=== PATIENT | male | born 1985 | race Asian ===

== ENCOUNTER 2019-10-07 07:16 | Inpatient (IN) | payer BC ==
[2019-10-07] MEDS ORDERED: CEFTRIAXONE 2,000 MG in DEXTROSE 5%-WATER - 50 ML IVPB ONE (07:59)
[2019-10-07] MEDS ORDERED: VANCOMYCIN 1 GM in D5W (PRE-DOCKED) 1,000 MG/250 ML IVPB ONE (08:00)
[2019-10-07] MEDS ORDERED: ONDANSETRON 4 MG/2 ML VIAL IVPUSH ONE (08:00)
[2019-10-07] MEDS ORDERED: ACETAMINOPHEN 1000 MG/100 ML VIAL (NON FORMULARY) IVPB ONE (08:00)
[2019-10-07] MEDS ORDERED: LACTATED RINGERS SOLUTION 1000 ML INFUS.BAG IV ONE (08:01)
[2019-10-07] MEDS ORDERED: DEXAMETHASONE SOD PHOSPHATE 20 MG/5 ML VIAL IVPB ONE (08:03)
[2019-10-07] MEDS ORDERED: METOCLOPRAMIDE HCL INJECTION 10 MG/2 ML VIAL IVPB ONE ×2 (08:06→19:15)
[2019-10-07] MEDS ORDERED: DEXAMETHASONE SOD PHOSPHATE 4 MG/1 ML VIAL IVPUSH ONE (08:07)
[2019-10-07] MEDS ORDERED: CEFTRIAXONE 2 GM/100 ML BAG IVPB ONE ×2 (08:16→22:24)
[2019-10-07] MEDS ORDERED: DEXAMETHASONE SOD PHOSPHATE 10 MG/1 ML VIAL ONE (08:27)
[2019-10-07 08:50] LABS: BASO % 0.5 % (0-2.0); EOS % 1.3 % (0-4.5); HEMATOCRIT 40.8 % (35.4-49); HEMOGLOBIN 14.1 GM/dL (11.7-16.9); LYMPH % 10.5 % (8-40); MCH 30.3 pg (25.7-33.7); MCHC 34.5 g/dl (32.0-35.9); MEAN CELL VOLUME 87.9 fl (80-96); MEAN PLT VOLUME 8.5 fl (7.5-11.1); NEUT % 80.7 % (42.8-82.8); PLATELET COUNT 223 K/MM3 (134-434); RBC 4.64 M/mm3 (4.00-5.60); RDW 13.3 % (11.9-15.9); WHITE BLOOD COUNT 8.7 K/mm3 (4.0-10.0)
--- NOTE | 2019-10-07 08:50 | PDOC ---
Attending Attestation - Resident Resident Name: TrentonSophie - ED Attending Attestation I have performed the following: I have examined & evaluated the patient, The case was reviewed & discussed with the resident, I agree w/resident's findings & plan, Exceptions are as noted - HPI HPI: 10/07/19 08:48 34 years old with past medical history significant for migraines and previous history of viral meningitis presents to the emergency department with persistent constant headache and viral URI symptoms since Thursday. Normally his migraines resolve with Excedrin did not resolve he was tested for the flu which came back negative but treated empirically with Tamiflu His headache is moderate to severe persistent constant he states it is associated with neck stiffness subjective fevers but no fever here in the emergency department - Physicial Exam PE: 10/07/19 08:49 Vitals: Triage Vital signs reviewed General Appearance: No acute distress, well nourished well developed, Head: Atraumatic, Neck: Supple; no Nucal rigidity Chest Wall: Nontender Cardiac: Regular rate and rhythym, no murmurs, no rubs, no gallops, Lungs: Clear to auscultation bilateral, good air movement bilaterally, Abdomen: Soft, non distended, normal bowel sounds, non tender to palpation Extremities: Full range of motion to all extremities, no cyanosis, clubbing, or edema Skin: Warm and dry, no rashes or lesions, no rash, no petechiae Neuro: Strengthintact to all extremities, sensation intact to all extremities, gait normal Psych: Normal mood, normal affect - Medical Decision Making 10/07/19 08:49 History and examination consistent with migraine headache versus viral meningitis no fever neck is supple low suspicion for bacterial meningitis at this time however given symptomatology will empirically cover, CT labs observe reassess LP Persistent headache decision made to LP patient. See procedure note. Patient tolerated procedure well. Reevaluation LP results consistent with viral meningitis Given recurrence of viral meningitis picture patient started on acyclovir will admit to hospital for further management and neurology consultation will need work-up for possible inflammatory meningitis versus recurrent viral meningitis
[2019-10-07] MEDS ORDERED: METOCLOPRAMIDE HCL INJECTION 10 MG/2 ML VIAL ONE ×2 (08:55→17:24)
[2019-10-07] MEDS ORDERED: ACETAMINOPHEN INJECTION 100 ML IVPB ONE ×2 (08:55→17:24)
[2019-10-07] MEDS ORDERED: VANCOMYCIN 1 GRAM (PRE-DOCKED) 1,000 MG/250 ML BAG IVPB ONE (08:56)
--- NOTE | 2019-10-07 09:01 | PDOC ---
History of Present Illness - General Chief Complaint: Headache Stated Complaint: HEAD PAIN Time Seen by Provider: 10/07/19 07:28 - History of Present Illness Initial Comments: 10/07/19 08:57 34 yo M PMH viral meningitis 6 years ago, Lyme disease 10 years ago, unexplained pre-syncope/syncope with loop recorder in place for past 1 years, presenting with headache. Notes that headache began on Thursday, posterior radiating down back, 05/26 (02/23 with pain medication), associated with neck pain, nausea, generalized weakness, and chills. Exacerbated by neck flexion, sound, and light. Visited PCP on Thursday, who checked for flu (negative) and empirically started on Tamiflu and Zofran. Has tried Excedrin and Advil with only temporary relief. Had one episode of vomiting this AM despite Zofran. Social: occasional marijuana use, only has sex with women, 2-3 sexual partners Past History - Past Medical History Allergies/Adverse Reactions: Allergies Allergy/AdvReac Type Severity Reaction Status Date / Time No Known Allergies Allergy Verified 10/07/19 07:18 Home Medications: Ambulatory Orders Levothyroxine [Synthroid -] 50 mcg PO DAILY 04/19/14 Doxycycline Monohydrate [Monodox] 100 mg PO Q12H #20 capsule 04/22/14 Levothyroxine [Synthroid -] 50 mcg PO DAILY@0700 #10 tablet 04/22/14 Oxycodone HCl/Acetaminophen [Percocet 10-325 mg Tablet -] 1 - 2 tab PO Q6H #20 tablet 04/22/14 COPD: No Thyroid Disease: Yes (HYPO no meds) Other medical history: meningitis - Psycho Social/Smoking Cessation Hx Smoking History: Former smoker Have you smoked in the past 12 months: No Number of Cigarettes Smoked Daily: 1 Information on smoking cessation initiated: No Hx Alcohol Use: No Drug/Substance Use Hx: No Substance Use Type: Marijuana Hx Substance Use Treatment: No Review of Systems - Review of Systems Comments:: 10/07/19 09:05 GENERAL/CONSTITUTIONAL: endorses subjective fever/chills, generalized weakness, and malaise HEAD, EYES, EARS, NOSE AND THROAT: denies rhinorrhea, nasal congestion, throat pain, throat swelling, difficulty swallowing, mouth swelling, ear pain, eye pain , visual changes NEUROLOGIC: endorses headache, fine tremor in hands. Denies unsteady gait, seizure, mental status changes, bladder or bowel incontinence CARDIOVASCULAR: denies chest pain, syncope, palpitations, irregular heart rate, lightheadedness, peripheral edema RESPIRATORY: denies cough, shortness of breath, dyspnea with exertion, orthopnea , wheezing, stridor, hemoptysis GASTROINTESTINAL: endorses nausea and vomiting. Denies abdominal pain, abdominal distension, diarrhea, constipation, melena, hematochezia GENITOURINARY: denies dysuria, frequency, urgency, hesitancy, hematuria, flank pain, genital pain MUSCULOSKELETAL: denies myalgia, arthralgia, joint swelling, back pain, neck pain SKIN: denies rash, itching, pallor HEMATOLOGIC/IMMUNOLOGIC: denies easy bleeding, easy bruising, lymphadenopathy, frequent infections ENDOCRINE: denies unexplained weight gain, unexplained weight loss, heat intolerance, cold intolerance PSYCHIATRIC: denies anxiety, depression, suicidal or homicidal ideation, hallucinations *Physical Exam - Vital Signs Last Vital Signs Temp Pulse Resp BP Pulse Ox 98.1 F 89 18 143/87 98 10/07/19 07:20 10/07/19 07:20 10/07/19 07:20 10/07/19 07:20 10/07/19 07:20 - Physical Exam 10/07/19 09:07 Gen: well-developed, well-nourished, appears uncomfortable Neuro: AAOX4, CN II-XII intact, FTN intact, EOMI, PERRLA, 5/5 strength, SILT HEENT: atraumatic, normocephalic, dry mucous membranes Neck: trachea midline, supple, pain with neck flexion but negative Brudzinski sign CV: regular rate, regular rhythm, no murmurs, rubs, or gallops Pulm: CTA b/l, no wheezing Abd: soft, non-distended, non-tender MSK: full ROM, intact pulses, negative Kernig's sign Extr: no edema, no deformities Skin: warm, dry ED Treatment Course - LABORATORY CBC & Chemistry Diagram: 10/07/19 08:30 10/07/19 08:30 - Medications Given in the ED: ED Medications Discontinued Medications Generic Name Dose Route Start Last Admin Trade Name Freq PRN Reason Stop Dose Admin Dexamethasone Sodium Phosphate 4 mg 10/07/19 08:07 10/07/19 08:40 Decadron Injection - IVPUSH 10/07/19 08:08 4 mg ONCE ONE Administration Ceftriaxone Sodium 2,000 mg/ 50 mls @ 100 mls/hr 10/07/19 07:59 10/07/19 08: 39 Dextrose IVPB 10/07/19 08:28 100 mls/hr ONCE ONE Administration Medical Decision Making - Medical Decision Making 10/07/19 08:23 C/f viral meningitis vs migraine vs ICH. - ceftriaxone 2g - vanc 1g - Ofirmev, Reglan, Benadryl, fluids - Decadron - CBC, CMP - coags - CT head non con - potential lumbar puncture 10/07/19 09:12 CBC unremarkable 10/07/19 09:35 CMP and coags unremarkable 10/07/19 12:34 CSF with WBC 200, protein 216, lymphocytes 79%. Will admit for r/o bacterial meningitis, potential further work up of inflammatory etiologies. 10/07/19 13:[address] Cobb, who recommends sending viral studies (EBV, HSV ) and contacting ID for potential further CSF studies. Concerned about potential Mollaret's meningitis. 10/07/19 13:[address] Lagunas, who agrees to empirically treat with acyclovir. Further recommends encephalitis CSF studies. Discharge - Discharge Information Problems reviewed: Yes Clinical Impression/Diagnosis: Viral meningitis - Follow up/Referral Referrals: Dane Collins MD [Primary Care Provider] - - Patient Discharge Instructions - Post Discharge Activity
[2019-10-07 09:14] LABS: BILIRUBIN,TOTAL 0.6 mg/dL (0.2-1); BLOOD UREA NITROGEN 16.5 mg/dL (7-18); CALCIUM 9.9 mg/dL (8.5-10.1); CREATININE 1.1 mg/dL (0.55-1.3); INR 0.92 (0.83-1.09); PROTHROMBIN TIME (PATIENT) 10.8 SEC (9.7-13.0); TOT PROT 7.8 g/dl (6.4-8.2)
[2019-10-07 09:17] LABS: ACTIVATED PTT 34.9 SECONDS (25.2-36.5)
[2019-10-07] MEDS ORDERED: MIDAZOLAM HCL 2 MG/2 ML SINGLE DOSE VIAL IVPUSH ONE (09:54)
[2019-10-07] MEDS ORDERED: LIDOCAINE HCL 1%, 10 MG/ML (50 mL VIAL) INF ONE (09:54)
[2019-10-07] MEDS ORDERED: LIDOCAINE HCL 1%, 10 MG/ML (20ML VIAL) ONE (09:59)
[2019-10-07] MEDS ORDERED: MIDAZOLAM HCL 2 MG/2 ML SINGLE DOSE VIAL ONE (10:00)
[2019-10-07 11:13] LABS: BF GLUCOSE (CSF ONLY) 47 mg/dL (40-70)
[2019-10-07 11:33] LABS: CSF APPEARANCE CLEAR; CSF COLOR COLORLESS
[2019-10-07 11:52] LABS: CSF WBC 200
[2019-10-07] MEDS ORDERED: ACYCLOVIR 500 MG (50MG/ML) VIAL IVPUSH ONE (13:32)
[2019-10-07] MEDS ORDERED: ACYCLOVIR INJECTION 800 MG in DEXTROSE 5%-WATER - 250 ML IVPB ONE (15:00)
[2019-10-07] MEDS ORDERED: SODIUM CHLORIDE 1,000 ML IV SCH (16:00)
--- NOTE | 2019-10-07 16:08 | PN ---
Teaching Attending Note Name of Resident: Gustavo Duran ATTENDING PHYSICIAN STATEMENT I saw and evaluated the patient. I reviewed the resident's note and discussed the case with the resident. I agree with the resident's findings and plan as documented. Presents with symptoms that were consistent with the Seen by Dr. Butt last time he was here; suspected pain seeking behavior at the previous 2013 admission for same issue. Patient with LP consitent with prior dx of meningitis. IV abx and anti-virals per ID. Discussed with Dr. Cobb 10 sys ROS done and negative aside from HPI +Kernig's, equivical B's NAD AAO Resting in bed HR wnl, no fnd Normal mood, appropriate behavior Lungs CTAB, w/ sym exp NT ND +BS Micro pending Imaging reviewed ASSESSMENT AND PLAN: Patient with history of meningitis and pain seeking behavior presents with headache and lab findings consistent with prior diagnosis. Would avoid opioids and maximize amount of non-narcotic analgesics. Defer overall tx to ID and followup micro. neuro consulted to r/o occult diagnosis given recurrance. Monitor on floor in isoolation. Full Code
--- NOTE | 2019-10-07 16:36 | HP ---
CHIEF COMPLAINT: PCP: HISTORY OF PRESENT ILLNESS: ER course was notable for: (1) (2) (3) Recent Travel: PAST MEDICAL HISTORY: PAST SURGICAL HISTORY: Social History: Smoking: Alcohol: Drugs: Allergies No Known Allergies Allergy (Verified 10/07/19 07:18) HOME MEDICATIONS: Home Medications Medication Instructions Recorded Levothyroxine [Synthroid -] 50 mcg PO DAILY 04/19/14 Doxycycline Monohydrate [Monodox] 100 mg PO Q12H #20 capsule 04/22/14 Levothyroxine [Synthroid -] 50 mcg PO DAILY@0700 #10 tablet 04/22/14 Oxycodone HCl/Acetaminophen 1 - 2 tab PO Q6H #20 tablet 04/22/14 [Percocet 10-325 mg Tablet -] REVIEW OF SYSTEMS CONSTITUTIONAL: Absent: fever, chills, diaphoresis, generalized weakness, malaise, loss of appetite, weight change HEENT: Absent: rhinorrhea, nasal congestion, throat pain, throat swelling, difficulty swallowing, mouth swelling, ear pain, eye pain, visual changes CARDIOVASCULAR: Absent: chest pain, syncope, palpitations, irregular heart rate, lightheadedness , peripheral edema RESPIRATORY: Absent: cough, shortness of breath, dyspnea with exertion, orthopnea, wheezing, stridor, hemoptysis GASTROINTESTINAL: Absent: abdominal pain, abdominal distension, nausea, vomiting, diarrhea, constipation, melena, hematochezia GENITOURINARY: Absent: dysuria, frequency, urgency, hesitancy, hematuria, flank pain, genital pain MUSCULOSKELETAL: Absent: myalgia, arthralgia, joint swelling, back pain, neck pain SKIN: Absent: rash, itching, pallor HEMATOLOGIC/IMMUNOLOGIC: Absent: easy bleeding, easy bruising, lymphadenopathy, frequent infections ENDOCRINE: Absent: unexplained weight gain, unexplained weight loss, heat intolerance, cold intolerance NEUROLOGIC: Absent: headache, focal weakness or paresthesias, dizziness, unsteady gait, seizure, mental status changes, bladder or bowel incontinence PSYCHIATRIC: Absent: anxiety, depression, suicidal or homicidal ideation, hallucinations. PHYSICAL EXAMINATION Vital Signs - 24 hr 10/07/19 10/07/19 10/07/19 07:20 08:01 14:28 Temperature 98.1 F 98.7 F Pulse Rate 89 Pulse Rate [ 65 Right Radial] Respiratory 18 18 Rate Blood Pressure 143/87 Blood Pressure 106/62 [Left Arm] O2 Sat by Pulse 98 99 Oximetry (%) GENERAL: Awake, alert, and fully oriented, in no acute distress. HEAD: Normal with no signs of trauma. EYES: Pupils equal, round and reactive to light, extraocular movements intact, sclera anicteric, conjunctiva clear. No lid lag. EARS, NOSE, THROAT: Ears normal, nares patent, oropharynx clear without exudates. Moist mucous membranes. NECK: Normal range of motion, supple without lymphadenopathy, JVD, or masses. LUNGS: Breath sounds equal, clear to auscultation bilaterally. No wheezes, and no crackles. No accessory muscle use. HEART: Regular rate and rhythm, normal S1 and S2 without murmur, rub or gallop. ABDOMEN: Soft, nontender, not distended, normoactive bowel sounds, no guarding, no rebound, no masses. No hepatomegaly or splenomegaly. MUSCULOSKELETAL: Normal range of motion at all joints. No bony deformities or tenderness. No CVA tenderness. UPPER EXTREMITIES: 2+ pulses, warm, well-perfused. No cyanosis. No clubbing. No peripheral edema. LOWER EXTREMITIES: 2+ pulses, warm, well-perfused. No calf tenderness. No peripheral edema. NEUROLOGICAL: Cranial nerves II-XII intact. Normal speech. Normal gait. PSYCHIATRIC: Cooperative. Good eye contact. Appropriate mood and affect. SKIN: Warm, dry, normal turgor, no rashes or lesions noted, normal capillary refill. Laboratory Results - last 24 hr 10/07/19 10/07/19 10/07/19 08:30 08:30 08:30 WBC 8.7 RBC 4.64 Hgb 14.1 Hct 40.8 MCV 87.9 MCH 30.3 MCHC 34.5 RDW 13.3 Plt Count 223 MPV 8.5 Absolute Neuts (auto) 7.0 Neutrophils % 80.7 D Lymphocytes % 10.5 D Monocytes % 7.0 Eosinophils % 1.3 D Basophils % 0.5 Nucleated RBC % 0 PT with INR 10.80 INR 0.92 PTT (Actin FS) 34.9 Sodium 140 Potassium 4.0 Chloride 107 Carbon Dioxide 28 Anion Gap 6 L BUN 16.5 Creatinine 1.1 Est GFR (CKD-EPI)AfAm 101.69 Est GFR (CKD-EPI)NonAf 87.74 Random Glucose 110 H Calcium 9.9 Total Bilirubin 0.6 AST 14 L ALT 28 Alkaline Phosphatase 61 Total Protein 7.8 Albumin 4.0 CSF Appearance CSF Color CSF WBC CSF RBC CSF Neutrophils CSF Lymphocytes CSF Monocytes CSF Eosinophils CSF Basophils CSF Macrophages CSF Plasma Cells CSF Diff Comment CSF Comment CSF Glucose CSF Total Protein Influenza A (Rapid) Influenza B (Rapid) 10/07/19 10/07/19 09:24 10:45 WBC RBC Hgb Hct MCV MCH MCHC RDW Plt Count MPV Absolute Neuts (auto) Neutrophils % Lymphocytes % Monocytes % Eosinophils % Basophils % Nucleated RBC % PT with INR INR PTT (Actin FS) Sodium Potassium Chloride Carbon Dioxide Anion Gap BUN Creatinine Est GFR (CKD-EPI)AfAm Est GFR (CKD-EPI)NonAf Random Glucose Calcium Total Bilirubin AST ALT Alkaline Phosphatase Total Protein Albumin CSF Appearance Clear CSF Color Colorless CSF WBC 200 CSF RBC 10 CSF Neutrophils 5 CSF Lymphocytes 79 CSF Monocytes 10 CSF Eosinophils 3 CSF Basophils 3 CSF Macrophages No Result Required. CSF Plasma Cells No Result Required. CSF Diff Comment No Result Required. CSF Comment No Result Required. CSF Glucose 47 CSF Total Protein 216 H Influenza A (Rapid) Negative Influenza B (Rapid) Negative ASSESSMENT/PLAN: ATTENDING PHYSICIAN STATEMENT I saw and evaluated the patient. I reviewed the resident's note and discussed the case with the resident. I agree with the resident's findings and plan as documented. SUBJECTIVE: OBJECTIVE: ASSESSMENT AND PLAN:
--- NOTE | 2019-10-07 17:15 | PN ---
Progress Note (short form) - Note Progress Note: ID consult dictated imp/reccd 34 yo male admitted with myalgias and headache since Thursday vomiting once today subjective fevers at home came to ED s/p LP no travel, no hiking, no insect bites no pets, no rodents in his house history of lyme 10 years ago treated at [facility]- meningitis suspect viral/aseptic await cultures ?molleret's sexually active multiple partners csf cultures rpr csf vdrl lyme hiv/hiv rna hsv pcr rocephin/vanco/acyclovir d/w admitting resident droplet isolation for 24 hours after meds are started Problem List - Problems (1) Meningitis Code(s): G03.9 - MENINGITIS, UNSPECIFIED
[2019-10-07] MEDS: SODIUM CHLORIDE 1,000 ML IV SCH (17:30)
[2019-10-07] MEDS: ACETAMINOPHEN 1000 MG/100 ML VIAL (NON FORMULARY) IVPB PRN (17:31)
--- NOTE | 2019-10-07 17:31 | HP ---
CHIEF COMPLAINT: headache PCP: Dr. Collins HISTORY OF PRESENT ILLNESS: This is a 34 yo M with a PMHx of viral meningitis 6 years ago, Lyme disease 8 years ago (did not complete doxy regimen), unexplained pre-syncope/syncope with loop recorder in place for past 1 years, presenting with headache, photophobia, nausea, and vomiting not relieved with zofran. Pt states that his headache began on Thursday, posterior radiating down back, 05/26 (02/23 with pain medication), associated with neck pain, nausea, generalized weakness, and chills, causing him to lose sleep. He called out of work and made an appointment with his PCP who treated him with tamiflu and zofran even though flu was negative. Pt Has tried Excedrin and Advil with only temporary relief. Pt was here in 2013 had an LP with similar results to this time. He was sent home on doxy with ? malingering diagnosis/pain meds seeking, and close follow up with ID(Lydia). States his parents are in [place] and he has been home alone since. 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 Pt states he was gonna let it pass but developed a rash on his back traveling down his buttocks that did not go away with hydrocortisone cream, pruritic and erythematous. Denies any fevers, abdominal pain, bowel/bladder complaints, cp, sob. ER course was notable for: (1)vanc, ceftriaxone, acyclovir given, Head CT negative (2)LP done- 200 wbc, rbc-10, neuts-5, lymphocytes- 79, protein-216 (3)ID contacted- wanting acyclovir and viral panel, Neuro contacted Recent Travel: denies PAST SURGICAL HISTORY: C2 spine fx from fall, Lt ACL/PCL surgery Social History: Smoking:occasional marijuana use, only has sex with women, 2-3 sexual partners Alcohol:denies Drugs: denies Allergies No Known Allergies Allergy (Verified 10/07/19 07:18) HOME MEDICATIONS: Home Medications Medication Instructions Recorded Levothyroxine [Synthroid -] 50 mcg PO DAILY 04/19/14 Doxycycline Monohydrate [Monodox] 100 mg PO Q12H #20 capsule 04/22/14 Levothyroxine [Synthroid -] 50 mcg PO DAILY@0700 #10 tablet 04/22/14 Oxycodone HCl/Acetaminophen 1 - 2 tab PO Q6H #20 tablet 04/22/14 [Percocet 10-325 mg Tablet -] REVIEW OF SYSTEMS negative except above PHYSICAL EXAMINATION Vital Signs - 24 hr 10/07/19 10/07/19 10/07/19 07:20 08:01 14:28 Temperature 98.1 F 98.7 F Pulse Rate 89 Pulse Rate [ 65 Right Radial] Respiratory 18 18 Rate Blood Pressure 143/87 Blood Pressure 106/62 [Left Arm] O2 Sat by Pulse 98 99 Oximetry (%) GENERAL: Awake, alert, and fully oriented, in no acute distress. HEAD: Normal with no signs of trauma. NECK: Normal range of motion, positive brudzinski sign, negative kernig sign LUNGS: Breath sounds equal, clear to auscultation bilaterally. No wheezes, and no crackles. No accessory muscle use. HEART: Regular rate and rhythm, normal S1 and S2 without murmur, rub or gallop. ABDOMEN: Soft, nontender, not distended, normoactive bowel sounds, no guarding, no rebound, no masses. No hepatomegaly or splenomegaly. LOWER EXTREMITIES: 2+ pulses, warm, well-perfused. No calf tenderness. No peripheral edema. NEUROLOGICAL: Cranial nerves II-XII intact. Normal speech. Normal gait. B/l leg weakness due to pain, sensation intact, no bells palsy, good power and tone b/l upper and lower extremities PSYCHIATRIC: Cooperative. Good eye contact. Appropriate mood and affect. SKIN: no rash noted on exam of back or buttocks, band aid from LP appreciated. Laboratory Results - last 24 hr 10/07/19 10/07/19 10/07/19 08:30 08:30 08:30 WBC 8.7 RBC 4.64 Hgb 14.1 Hct 40.8 MCV 87.9 MCH 30.3 MCHC 34.5 RDW 13.3 Plt Count 223 MPV 8.5 Absolute Neuts (auto) 7.0 Neutrophils % 80.7 D Lymphocytes % 10.5 D Monocytes % 7.0 Eosinophils % 1.3 D Basophils % 0.5 Nucleated RBC % 0 PT with INR 10.80 INR 0.92 PTT (Actin FS) 34.9 Sodium 140 Potassium 4.0 Chloride 107 Carbon Dioxide 28 Anion Gap 6 L BUN 16.5 Creatinine 1.1 Est GFR (CKD-EPI)AfAm 101.69 Est GFR (CKD-EPI)NonAf 87.74 Random Glucose 110 H Calcium 9.9 Total Bilirubin 0.6 AST 14 L ALT 28 Alkaline Phosphatase 61 Total Protein 7.8 Albumin 4.0 CSF Appearance CSF Color CSF WBC CSF RBC CSF Neutrophils CSF Lymphocytes CSF Monocytes CSF Eosinophils CSF Basophils CSF Macrophages CSF Plasma Cells CSF Diff Comment CSF Comment CSF Glucose CSF Total Protein Influenza A (Rapid) Influenza B (Rapid) 10/07/19 10/07/19 09:24 10:45 WBC RBC Hgb Hct MCV MCH MCHC RDW Plt Count MPV Absolute Neuts (auto) Neutrophils % Lymphocytes % Monocytes % Eosinophils % Basophils % Nucleated RBC % PT with INR INR PTT (Actin FS) Sodium Potassium Chloride Carbon Dioxide Anion Gap BUN Creatinine Est GFR (CKD-EPI)AfAm Est GFR (CKD-EPI)NonAf Random Glucose Calcium Total Bilirubin AST ALT Alkaline Phosphatase Total Protein Albumin CSF Appearance Clear CSF Color Colorless CSF WBC 200 CSF RBC 10 CSF Neutrophils 5 CSF Lymphocytes 79 CSF Monocytes 10 CSF Eosinophils 3 CSF Basophils 3 CSF Macrophages No Result Required. CSF Plasma Cells No Result Required. CSF Diff Comment No Result Required. CSF Comment No Result Required. CSF Glucose 47 CSF Total Protein 216 H Influenza A (Rapid) Negative Influenza B (Rapid) Negative ASSESSMENT/PLAN: This is a 34 yo M with a PMHx of viral meningitis 6 years ago, Lyme disease 8 years ago (did not complete doxy regimen), unexplained pre-syncope/syncope with loop recorder in place for past 1 years, presenting with headache, photophobia, nausea, and vomiting not relieved with zofran. Pt states that his headache began on Thursday, posterior radiating down back, 05/26 (7/10 with pain medication ), associated with neck pain, nausea, generalized weakness, and chills, causing him to lose sleep. He called out of work and made an appointment with his PCP who treated him with tamiflu and zofran even though flu was negative. #Viral meningitis vs Acute on chronic Lyme disease vs Mollerets - unknown cause - LP results as above show viral cause - full viral panel and encephalitis panel sent, rpr, vdrl, HIV, HSV pcr - lyme panel sent - fungal culture sent - ID (Dr. Lagunas) recommending continuing rocephin/vanco/acyclovir - neuro (Dr. Cobb) consulted thinking it could be mollerets given it is recurrent. will wait for official recommendations. - influenza negative - will dc tamiflu, - decadron given, benadryl, and versed, reglan given for rash and headache. - seizure, fall precautions - neuro checks q2h - droplet precaution isolation for the next 24 hours - Tylenol 1000 IV q6H for pain #Presyncope hx - pt on loop recorder - pt had no presyncopal event here - will continue to monitor Dispo: Med surg monitoring sufficient DVTR ppx:Lovenox 40 daily Visit type - Emergency Visit Emergency Visit: Yes ED Registration Date: 10/07/19 Care time: The patient presented to the Emergency Department on the above date and was hospitalized for further evaluation of their emergent condition. - New Patient This patient is new to me today: Yes Date on this admission: 10/09/19 - Critical Care Critical Care patient: No ATTENDING PHYSICIAN STATEMENT I saw and evaluated the patient. I reviewed the resident's note and discussed the case with the resident. I agree with the resident's findings and plan as documented. SUBJECTIVE: OBJECTIVE: ASSESSMENT AND PLAN:
--- NOTE | 2019-10-07 18:29 | CONS ---
INFECTIOUS DISEASE CONSULTATION DATE OF CONSULTATION: DATE OF DICTATION: 10/07/2019 HISTORY: This is a 34-year-old man who presents to the emergency room with headache. He reports the headache started on Thursday. He had a lot of myalgia with it. He went to see his doctor. He had some feelings of fevers and chills subjective at home. He saw his doctor who checked him for influenza and started him on Tamiflu and Zofran. His influenza screen was negative. After these symptoms started, he tried Excedrin and Advil with no relief. His headache worsened, and he came to the ER. He has had 1 episode of vomiting this morning despite the Zofran. PAST MEDICAL HISTORY: Significant for the fact he had viral meningitis in 2013, he had a history of Lyme disease 10 years ago, and he has a history of prior syncope and has a loop recorder in place for the past 1 year. He denies history of herpes infection in the past. ALLERGIES: He has no known drug allergies. MEDICATIONS: He takes finasteride as an outpatient for the last 2 years. SOCIAL HISTORY: He is a former smoker. He lives in a house with his parents. They are away. There is no history of any recent travel. He has no pets. There are no mice in the house. He is sexually active. He has 3 partners, and his condom use is not 100%. Reports being STD screened recently and being negative. He does note sick contacts at work. 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 REVIEW OF SYSTEMS: Subjective fevers and chills, generalized weakness and malaise, headache. PHYSICAL EXAMINATION: Vital Signs: He is afebrile. Temperature is 98.7, pulse is 65, blood pressure 106/62, respiratory rate of 18, saturating 99% on room air. Reports a weight of 81 kg. HEENT: He is normocephalic. His eyes are anicteric. Neck: Supple. Lungs: Clear to auscultation. Heart: Regular rate and rhythm. Abdomen: Soft, nontender. Extremities: Without edema. Lymphatics: He has no adenopathy on exam. Genitourinary: He has no genital lesions on exam. LABORATORIES: Notable for a white count of 8.7, hemoglobin 14.1, platelets of 223. His INR is normal. BUN 16, creatinine 1.1. LFTs are normal. CSF was notable for 200 white cells, 5 polys, 79% lymphocytes, total protein of 216, and a glucose of 47. Influenza screen was done and was negative. He had a pneumococcal antigen done on the CSF that is negative. He has spinal fluid pending Gram stain, which is negative as well. Blood cultures are pending as well. He received Decadron, ceftriaxone, vancomycin, and acyclovir in the ER. Head CT was done, and it is unremarkable. 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 Doubt medication related. Await cultures. Raises a question of could this be Mollaret as well. He is sexually active with multiple partners. Has consented to HIV testing. Would send an HIV and an HIV RNA for acute seroconversion. Rest of his serology has been discussed with the ER staff and has been ordered including HSV PCR, Lyme, CSF, VDRL, RPR, and all of the routine CSF cultures as well as viral encephalitis panel. He will be treated with Rocephin, vancomycin, acyclovir and IV fluids until cultures are back. This was discussed with the admitting resident. Droplet isolation for 24 hours after medications are started. CEM FERRARO M.D. [id number]
[2019-10-07] MEDS ORDERED: KETOROLAC TROMETHAMINE 15 MG/ML VIAL IVPUSH ONE (19:13)
[2019-10-07] MEDS ORDERED: KETOROLAC TROMETHAMINE 15 MG/ML VIAL ONE (20:27)
[2019-10-07] MEDS: CEFTRIAXONE 2 GM in DEXTROSE 5%-WATER 100 ML IVPB SCH (22:25)
[2019-10-07] MEDS ORDERED: diphenhydrAMINE HCL 25 MG CAPSULE (FP) PO ONE (22:36)
[2019-10-07] MEDS: ACYCLOVIR INJECTION 800 MG in DEXTROSE 5%-WATER - 250 ML IVPB SCH (23:50)
[2019-10-08] MEDS: SODIUM CHLORIDE 1,000 ML IV SCH ×3 (00:29→21:34)
[2019-10-08] MEDS: VANCOMYCIN 1 GM in D5W (PRE-DOCKED) 1,000 MG/250 ML IVPB SCH ×2 (00:33→11:07)
[2019-10-08 01:48] VITALS: BMI 25.4
[2019-10-08] MEDS ORDERED: morphine CARPU-JECT 8 MG/1 ML DISP.SYRIN IVPUSH ONE (02:05)
[2019-10-08] MEDS ORDERED: MORPHINE SULFATE 2 MG/ML VIAL IVPUSH ONE (02:07)
[2019-10-08] MEDS: ACYCLOVIR INJECTION 800 MG in DEXTROSE 5%-WATER - 250 ML IVPB SCH ×3 (02:50→17:01)
[2019-10-08] MEDS: ACETAMINOPHEN 1000 MG/100 ML VIAL (NON FORMULARY) IVPB PRN ×2 (05:31→14:05)
[2019-10-08 06:29] LABS: BASO % 0.2 % (0-2.0); EOS % 0.2 % (0-4.5); HEMATOCRIT 35.3 % (35.4-49); HEMOGLOBIN 12.3 GM/dL (11.7-16.9); LYMPH % 15.2 % (8-40); MCH 30.3 pg (25.7-33.7); MCHC 34.7 g/dl (32.0-35.9); MEAN CELL VOLUME 87.3 fl (80-96); MEAN PLT VOLUME 8.5 fl (7.5-11.1); MONO % 10.4 % (3.8-10.2); PLATELET COUNT 205 K/MM3 (134-434); RBC 4.04 M/mm3 (4.00-5.60); RDW 13.3 % (11.9-15.9); WHITE BLOOD COUNT 8.3 K/mm3 (4.0-10.0)
[2019-10-08 08:08] LABS: ALBUMIN 3.4 g/dl (3.4-5.0); BILIRUBIN,TOTAL 0.5 mg/dL (0.2-1); BLOOD UREA NITROGEN 11.2 mg/dL (7-18); CALCIUM 9.2 mg/dL (8.5-10.1); CREATININE 0.9 mg/dL (0.55-1.3); MAGNESIUM 1.8 mg/dL (1.8-2.4); PHOSPHOROUS 3.9 mg/dL (2.5-4.9); POTASSIUM 3.6 mmol/L (3.5-5.1); TOT PROT 6.6 g/dl (6.4-8.2)
[2019-10-08] MEDS ORDERED: DEXTROSE 5%-WATER 100 ML IVPB ONE ×2 (09:24→20:19)
[2019-10-08] MEDS: CEFTRIAXONE 2 GM in DEXTROSE 5%-WATER 100 ML IVPB SCH ×2 (09:37→21:35)
[2019-10-08] MEDS ORDERED: ENOXAPARIN NA (PORCINE) 40 MG/0.4 ML DISP.SYRIN SQ SCH (10:00)
[2019-10-08] MEDS ORDERED: VANCOMYCIN 1 GM in D5W (PRE-DOCKED) 1,000 MG/250 ML IVPB SCH (10:45)
--- NOTE | 2019-10-08 11:04 | PN ---
Progress Note (short form) - Note Progress Note: looks well able to eat blood testes ordered in ER yesterday were not drawn Vital Signs Period Temp Pulse Resp BP Sys/Major Pulse Ox Last 24 Hr 98.0 F-98.3 F 65-80 16-18 106-129/51-91 97-99 cor-rrr lungs clear abd soft,nt ext no edema CBC, BMP 10/08/19 05:25 10/08/19 05:25 Microbiology 10/07/19 10:45 Cerebral Spinal Fluid - Lumbar Puncture Gram Stain - Final 10/07/19 10:45 Cerebral Spinal Fluid - Lumbar Puncture CSF Culture - Preliminary NO GROWTH OBTAINED AFTER 24 HOURS INCUBATION, REINCUBATED. 10/07/19 08:30 Blood - Peripheral Venous Blood Culture - Preliminary NO GROWTH OBTAINED AFTER 24 HOURS, INCUBATION TO CONTINUE FOR 4 DAYS. 10/07/19 08:30 Blood - Peripheral Venous Blood Culture - Preliminary NO GROWTH OBTAINED AFTER 24 HOURS, INCUBATION TO CONTINUE FOR 4 DAYS. 10/07/19 10:45 Cerebral Spinal Fluid - Lumbar Puncture Streptococcus pneumoniae Antigen (M - Final a/p meningitis suspect viral/aseptic await cultures ?molleret's sexually active multiple partners csf cultures rpr csf vdrl lyme hiv/hiv rna hsv pcr continue rocephin/acyclovir d/c vancomycin have called lab to f/u on undrawn blood tests Problem List - Problems (1) Meningitis Code(s): G03.9 - MENINGITIS, UNSPECIFIED
[2019-10-08] MEDS ORDERED: KETOROLAC TROMETHAMINE 15 MG/ML VIAL IVPUSH ONE (11:51)
--- NOTE | 2019-10-08 11:52 | PN ---
Teaching Attending Note ATTENDING PHYSICIAN STATEMENT I saw and evaluated the patient. I reviewed the resident's note and discussed the case with the resident. I agree with the resident's findings and plan as documented. SUBJECTIVE: OBJECTIVE: ASSESSMENT AND PLAN:
--- NOTE | 2019-10-08 11:53 | PN ---
Physical Exam: SUBJECTIVE: Patient seen and examined; noted ID input. Persistently complaints of pain. Requests IV medications. Counseled. DCd Lovenox for DVT ppx; not needed. Early ambulation and SCds ordered. Labs ordered in ER were not drawn. Anuj DCd. Giving Toradol x1 for headache. Very mild hyperglycemia and no leukocytosis but monocytosis noted. 10 sys ROS done and negative aside from HPI OBJECTIVE: Vital Signs Period Temp Pulse Resp BP Sys/Major Pulse Ox Last 24 Hr 98.0 F-98.3 F 65-80 16-18 106-129/51-91 97-99 GENERAL: The patient is awake, alert, and fully oriented, in no acute distress. HEAD: Normal with no signs of trauma. EYES: PERRL, extraocular movements intact, sclera anicteric, conjunctiva clear. No ptosis. ENT: Ears normal, nares patent, oropharynx clear without exudates, moist mucous membranes. NECK: Trachea midline, full range of motion, supple. LUNGS: Breath sounds equal, clear to auscultation bilaterally, no wheezes, no crackles, no accessory muscle use. HEART: Regular rate and rhythm, S1, S2 without murmur, rub or gallop. ABDOMEN: Soft, nontender, nondistended, normoactive bowel sounds, no guarding, no rebound, no hepatosplenomegaly, no masses. EXTREMITIES: 2+ pulses, warm, well-perfused, no edema. NEUROLOGICAL: Cranial nerves II through XII grossly intact. Normal speech, gait not observed. PSYCH: Normal mood, normal affect. SKIN: Warm, dry, normal turgor, no rashes or lesions noted Laboratory Results - last 24 hr 10/07/19 10/08/19 10/08/19 10:45 05:25 05:25 WBC 8.3 RBC 4.04 Hgb 12.3 Hct 35.3 L MCV 87.3 MCH 30.3 MCHC 34.7 RDW 13.3 Plt Count 205 MPV 8.5 Absolute Neuts (auto) 6.1 Neutrophils % 74.0 Lymphocytes % 15.2 D Monocytes % 10.4 H Eosinophils % 0.2 D Basophils % 0.2 Nucleated RBC % 0 Sodium 138 Potassium 3.6 Chloride 104 Carbon Dioxide 26 Anion Gap 8 BUN 11.2 Creatinine 0.9 Est GFR (CKD-EPI)AfAm 129.61 Est GFR (CKD-EPI)NonAf 111.83 Random Glucose 124 H Calcium 9.2 Phosphorus 3.9 Magnesium 1.8 Total Bilirubin 0.5 AST 12 L ALT 21 Alkaline Phosphatase 50 Total Protein 6.6 Albumin 3.4 TSH 1.19 CSF Appearance Clear CSF Color Colorless CSF WBC 200 CSF RBC 10 CSF Neutrophils 5 CSF Lymphocytes 79 CSF Monocytes 10 CSF Eosinophils 3 CSF Basophils 3 CSF Macrophages No Result Required. CSF Plasma Cells No Result Required. CSF Diff Comment No Result Required. CSF Comment No Result Required. Active Medications Generic Name Dose Route Start Last Admin Trade Name Freq PRN Reason Stop Dose Admin Acetaminophen 1,000 mg 10/07/19 16:56 10/08/19 05:31 Ofirmev Injection - IVPB 10/08/19 16:56 1,000 mg Q6H PRN Administration PAIN LEVEL 4 - 6 Sodium Chloride 1,000 mls @ 100 mls/hr 10/07/19 16:50 10/08/19 00:29 Normal Saline - IV 100 mls/hr ASDIR JULIA Administration Ceftriaxone Sodium 2 gm/ 100 mls @ 200 mls/hr 10/07/19 22:00 10/08/19 09:37 Dextrose IVPB 200 mls/hr BID JULIA Administration Acyclovir 800 mg/ Dextrose 266 mls @ 266 mls/hr 10/07/19 22:00 10/08/19 10:51 IVPB 266 mls/hr Q8H-IV JULIA Administration ASSESSMENT/PLAN: Presented with s/s and LP results consistent with likely viral meningitis; ID following. Complains of headaches. Is recurring and had issues with pain behavior on his last admission in 2013 and I am concerned this may be at play again. ID and neurology following. He is clinically improved and labs are stable and awaiting final culture results. Problems include: -Meningitis, likely viral. continue abx until (-) final cx; ID and neuro following. Pending csf cultures, rpr, csf vdrl, lyme, hiv/hiv rna, hsv pcr pending. Last night ER informed me that they couldnt get the EBV from the CSF so I requested blood IgG and IgM. Off vanco; continue acyclovir and rocephin. Got steroids yesterday which have been DCd -Prior history of pain behavior (2014 hospitalization). It needs to be noted that HE DOES HAVE A REAL DISEASE but there may be intent to maximize use of IV analgesics. Maximize use of NSAIDs and avoid opioids. If there is a need for opioids pain and objective findings must substantiate said use. Full Code Visit type - Emergency Visit Emergency Visit: Yes ED Registration Date: 10/07/19 Care time: The patient presented to the Emergency Department on the above date and was hospitalized for further evaluation of their emergent condition. - New Patient This patient is new to me today: No - Critical Care Critical Care patient: No
[2019-10-08] MEDS ORDERED: KETOROLAC TROMETHAMINE 30 MG/1 ML VIAL IVPUSH ONE (12:15)
[2019-10-08] MEDS ORDERED: PT OWN MED DRAWER 7, Y5N ONE (16:04)
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
[2019-10-09] MEDS: ACETAMINOPHEN 325 MG TABLET (FP) PO PRN ×3 (00:03→17:43)
[2019-10-09] MEDS: ACYCLOVIR INJECTION 800 MG in DEXTROSE 5%-WATER - 250 ML IVPB SCH ×3 (02:14→17:36)
[2019-10-09] MEDS ORDERED: DEXTROSE 5%-WATER 100 ML IVPB ONE (08:52)
[2019-10-09] MEDS: CEFTRIAXONE 2 GM in DEXTROSE 5%-WATER 100 ML IVPB SCH (08:59)
--- NOTE | 2019-10-09 09:58 | EKG ---
Test Reason : Blood Pressure : / mmHG Vent. Rate : 058 BPM Atrial Rate : 058 BPM P-R Int : 146 ms QRS Dur : 100 ms QT Int : 420 ms P-R-T Axes : 062 058 052 degrees QTc Int : 412 ms SINUS BRADYCARDIA POSSIBLE LEFT ATRIAL ENLARGEMENT BORDERLINE ECG NO PREVIOUS ECGS AVAILABLE Confirmed by LESLIE MERCADO, LAURENCE ([id number]) on 10/09/2019 9:58:04 AM Referred By: Confirmed By:LAURENCE NELSON MD
--- NOTE | 2019-10-09 10:49 | PN ---
Progress Note (short form) - Note Progress Note: looks well able to eat feels improved no complaints Vital Signs Period Temp Pulse Resp BP Sys/Major Pulse Ox Last 24 Hr 98.1 F-98.8 F 57-79 16-18 121-132/64-91 99 cor-rrr lungs clear abd soft,nt ext no edema CBC, BMP 10/08/19 05:25 10/08/19 05:25 Microbiology 10/07/19 08:30 Blood - Peripheral Venous Blood Culture - Preliminary NO GROWTH OBTAINED AFTER 48 HOURS, INCUBATION TO CONTINUE FOR 3 DAYS. 10/07/19 08:30 Blood - Peripheral Venous Blood Culture - Preliminary NO GROWTH OBTAINED AFTER 48 HOURS, INCUBATION TO CONTINUE FOR 3 DAYS. 10/07/19 10:45 Cerebral Spinal Fluid - Lumbar Puncture Gram Stain - Final 10/07/19 10:45 Cerebral Spinal Fluid - Lumbar Puncture CSF Culture - Preliminary NO GROWTH OBTAINED AFTER 24 HOURS INCUBATION, REINCUBATED. 10/07/19 10:45 Cerebral Spinal Fluid - Lumbar Puncture Streptococcus pneumoniae Antigen (M - Final hiv negative a/p meningitis suspect viral/aseptic await cultures ?molleret's can d/c ceftriaxone today if csf culture is negative at 48 hours, continue ivf and acyclovir f/u csf studies d/c isolation Problem List - Problems (1) Meningitis Code(s): G03.9 - MENINGITIS, UNSPECIFIED
[2019-10-09] MEDS ORDERED: PT OWN MED DRAWER 7, Y5N ONE ×2 (10:58→16:47)
--- NOTE | 2019-10-09 13:32 | PN ---
Physical Exam: SUBJECTIVE: Patient seen and examined at bedside this AM. No acute events noted. Headache has improved, not c/o photophobia, nausea, headache, abd pain, fever, chills. OBJECTIVE: Vital Signs Period Temp Pulse Resp BP Sys/Major Pulse Ox Last 24 Hr 98.1 F-98.8 F 57-79 16-18 121-132/64-91 98-99 GENERAL: The patient is awake, alert, and fully oriented, in no acute distress. HEAD: Normal with no signs of trauma. LUNGS: Breath sounds equal, clear to auscultation bilaterally. HEART: Regular rate and rhythm, S1, S2 without murmur, rub or gallop. ABDOMEN: Soft, nontender, nondistended, normoactive bowel sounds, no guarding, no rebound, no hepatosplenomegaly, no masses. EXTREMITIES: 2+ pulses, warm, well-perfused, no edema. Active Medications Generic Name Dose Route Start Last Admin Trade Name Freq PRN Reason Stop Dose Admin Acetaminophen 650 mg 10/08/19 23:26 10/09/19 11:10 Tylenol - PO 650 mg Q6H PRN Administration Fever Or Pain Sodium Chloride 1,000 mls @ 100 mls/hr 10/07/19 16:50 10/08/19 21:34 Normal Saline - IV 100 mls/hr ASDIR JULIA Administration Ceftriaxone Sodium 2 gm/ 100 mls @ 200 mls/hr 10/07/19 22:00 10/09/19 08:59 Dextrose IVPB 200 mls/hr BID JULIA Administration Acyclovir 800 mg/ Dextrose 266 mls @ 266 mls/hr 10/07/19 22:00 10/09/19 11:00 IVPB 266 mls/hr Q8H-IV JULIA Administration ASSESSMENT/PLAN: This is a 34 yo M with a PMHx of viral meningitis 6 years ago, Lyme disease 8 years ago (did not complete doxy regimen), unexplained pre-syncope/syncope with loop recorder in place for past 1 years, presenting with headache, photophobia, nausea, and vomiting not relieved with zofran. Pt states that his headache began on Thursday, posterior radiating down back, 05/26 (7/10 with pain medication ), associated with neck pain, nausea, generalized weakness, and chills, causing him to lose sleep. He called out of work and made an appointment with his PCP who treated him with tamiflu and zofran even though flu was negative. #Viral meningitis vs Acute on chronic Lyme disease vs Mollerets - unknown cause - LP results as above show viral cause - full viral panel and encephalitis panel sent, rpr, vdrl, HIV, HSV pcr - lyme panel sent, continue acyclovir - fungal culture sent - ID (Dr. Lagunas) recommending discontinuing ceftriaxone given Cx's negative X 48 hrs - neuro (Dr. Cobb) consulted thinking it could be mollerets given it is recurrent. - influenza negative - off tamiflu, - seizure, fall precautions - neuro checks q2h - droplet precaution isolation should be discontinued - Tylenol 1000 IV q6H for pain #Presyncope hx - pt on loop recorder - pt had no presyncopal event here - will continue to monitor Dispo: Med surg monitoring sufficient DVTR ppx:Lovenox 40 daily Visit type - Emergency Visit Emergency Visit: Yes ED Registration Date: 10/07/19 Care time: The patient presented to the Emergency Department on the above date and was hospitalized for further evaluation of their emergent condition. - New Patient This patient is new to me today: No - Critical Care Critical Care patient: No - Discharge Referral Referred to [facility] Med [facility] No ATTENDING PHYSICIAN STATEMENT I saw and evaluated the patient. I reviewed the resident's note and discussed the case with the resident. I agree with the resident's findings and plan as documented. SUBJECTIVE: OBJECTIVE: ASSESSMENT AND PLAN:
[2019-10-09] MEDS: SODIUM CHLORIDE 1,000 ML IV SCH ×2 (14:02→17:36)
[2019-10-09] MEDS: DOCUSATE SODIUM 100 MG CAPSULE (FP) PO SCH (17:36)
[2019-10-09] MEDS ORDERED: KETOROLAC TROMETHAMINE 30 MG/1 ML VIAL IM ONE (19:30)
[2019-10-09] MEDS: DIVALPROEX SODIUM 250 MG TABLET E.C. PO SCH (22:12)
[2019-10-10] MEDS: ACYCLOVIR INJECTION 800 MG in DEXTROSE 5%-WATER - 250 ML IVPB SCH ×3 (01:19→17:13)
[2019-10-10] MEDS: SODIUM CHLORIDE 1,000 ML IV SCH ×3 (01:20→17:12)
[2019-10-10 07:03] LABS: EOS % 9.5 % (0-4.5); HEMATOCRIT 38.1 % (35.4-49); HEMOGLOBIN 13.3 GM/dL (11.7-16.9); MCH 30.5 pg (25.7-33.7); MCHC 34.8 g/dl (32.0-35.9); MEAN CELL VOLUME 87.5 fl (80-96); MEAN PLT VOLUME 8.5 fl (7.5-11.1); MONO % 10.8 % (3.8-10.2); NEUT % 36.7 % (42.8-82.8); PLATELET COUNT 216 K/MM3 (134-434); RBC 4.35 M/mm3 (4.00-5.60); RDW 13.1 % (11.9-15.9); WHITE BLOOD COUNT 5.3 K/mm3 (4.0-10.0)
[2019-10-10 07:34] LABS: ALBUMIN 3.4 g/dl (3.4-5.0); BILIRUBIN,TOTAL 0.7 mg/dL (0.2-1); BLOOD UREA NITROGEN 9.4 mg/dL (7-18); CREATININE 0.9 mg/dL (0.55-1.3); POTASSIUM 3.7 mmol/L (3.5-5.1); TOT PROT 6.7 g/dl (6.4-8.2)
[2019-10-10] MEDS: DIVALPROEX SODIUM 250 MG TABLET E.C. PO SCH ×2 (09:44→21:17)
[2019-10-10] MEDS: DOCUSATE SODIUM 100 MG CAPSULE (FP) PO SCH (09:44)
[2019-10-10] MEDS: ACETAMINOPHEN 325 MG TABLET (FP) PO PRN (10:41)
--- NOTE | 2019-10-10 11:05 | PN ---
Progress Note (short form) - Note Progress Note: looks well able to eat feels improved Vital Signs Period Temp Pulse Resp BP Sys/Major Pulse Ox Last 24 Hr 97.3 F-98.8 F 59-73 18-18 123-130/65-74 98-100 cor-rrr lungs clear CBC, BMP 10/10/19 05:45 10/10/19 05:45 Microbiology 10/07/19 08:30 Blood - Peripheral Venous Blood Culture - Preliminary NO GROWTH OBTAINED AFTER 72 HOURS, INCUBATION TO CONTINUE FOR 2 DAYS. 10/07/19 08:30 Blood - Peripheral Venous Blood Culture - Preliminary NO GROWTH OBTAINED AFTER 72 HOURS, INCUBATION TO CONTINUE FOR 2 DAYS. 10/07/19 10:45 Cerebral Spinal Fluid - Lumbar Puncture Gram Stain - Final 10/07/19 10:45 Cerebral Spinal Fluid - Lumbar Puncture CSF Culture - Final NO GROWTH AFTER 48 HOURS INCUBATION 10/07/19 10:45 Cerebral Spinal Fluid - Lumbar Puncture DAVID Preparation - Preliminary 10/07/19 10:45 Cerebral Spinal Fluid - Lumbar Puncture Fungal Culture - Preliminary 10/07/19 10:45 Cerebral Spinal Fluid - Lumbar Puncture Viral Culture - Preliminary 10/07/19 10:45 Cerebral Spinal Fluid - Lumbar Puncture Cryptococcal Antigen - Preliminary 10/07/19 10:45 Cerebral Spinal Fluid - Lumbar Puncture AFB Smear Concentration - Preliminary 10/07/19 10:45 Cerebral Spinal Fluid - Lumbar Puncture Mycobacterial Culture - Preliminary 10/07/19 10:45 Cerebral Spinal Fluid - Lumbar Puncture Streptococcus pneumoniae Antigen (M - Final hiv negative a/p meningitis suspect viral/aseptic await cultures ?molleret's awaiting HSV pcr continue acyclovir and ivf Problem List - Problems (1) Meningitis Code(s): G03.9 - MENINGITIS, UNSPECIFIED
[2019-10-10] MEDS ORDERED: KETOROLAC TROMETHAMINE 30 MG/1 ML VIAL IVPUSH ONE (14:21)
--- NOTE | 2019-10-10 16:30 | PN ---
Physical Exam: SUBJECTIVE: Patient seen and examined. C/o stiff neck but improved, no rash or pain elsewhere, denies [place],sob, cp, fever, chills. OBJECTIVE: Vital Signs Period Temp Pulse Resp BP Sys/Major Pulse Ox Last 24 Hr 97.3 F-98.3 F 59-73 18-18 123-135/65-79 98-100 GENERAL: The patient is awake, alert, and fully oriented, in no acute distress. HEAD: Normal with no signs of trauma. LUNGS: Breath sounds equal, clear to auscultation bilaterally. HEART: Regular rate and rhythm, S1, S2 without murmur, rub or gallop. ABDOMEN: Soft, nontender, nondistended, normoactive bowel sounds, no guarding, no rebound, no hepatosplenomegaly, no masses. EXTREMITIES: 2+ pulses, warm, well-perfused, no edema. Laboratory Results - last 24 hr 10/07/19 10/10/19 10/10/19 17:25 05:45 05:45 WBC 5.3 RBC 4.35 Hgb 13.3 Hct 38.1 MCV 87.5 MCH 30.5 MCHC 34.8 RDW 13.1 Plt Count 216 MPV 8.5 Absolute Neuts (auto) 2.0 Neutrophils % 36.7 L D Lymphocytes % 42.0 H D Monocytes % 10.8 H Eosinophils % 9.5 H D Basophils % 1.0 D Nucleated RBC % 0 Sodium 139 Potassium 3.7 Chloride 106 Carbon Dioxide 27 Anion Gap 5 L BUN 9.4 Creatinine 0.9 Est GFR (CKD-EPI)AfAm 129.61 Est GFR (CKD-EPI)NonAf 111.83 Random Glucose 96 Calcium 9.0 Total Bilirubin 0.7 AST 13 L ALT 23 Alkaline Phosphatase 49 Total Protein 6.7 Albumin 3.4 HSV I IgG Ab <0.91 HSV II Inhibition IgG >23.60 H Active Medications Generic Name Dose Route Start Last Admin Trade Name Freq PRN Reason Stop Dose Admin Acetaminophen 650 mg 10/08/19 23:26 10/10/19 10:41 Tylenol - PO 650 mg Q6H PRN Administration Fever Or Pain Divalproex Sodium 250 mg 10/09/19 22:00 10/10/19 09:44 Depakote - PO 250 mg BID JULIA Administration Docusate Sodium 100 mg 10/09/19 16:45 10/10/19 09:44 Colace - PO 100 mg DAILY JULIA Administration Sodium Chloride 1,000 mls @ 100 mls/hr 10/07/19 16:50 10/10/19 13:59 Normal Saline - IV 100 mls/hr ASDIR JULIA Administration Acyclovir 800 mg/ Dextrose 266 mls @ 266 mls/hr 10/07/19 22:00 10/10/19 09:44 IVPB 266 mls/hr Q8H-IV JULIA Administration ASSESSMENT/PLAN: This is a 34 yo M with a PMHx of viral meningitis 6 years ago, Lyme disease 8 years ago (did not complete doxy regimen), unexplained pre-syncope/syncope with loop recorder in place for past 1 years, presenting with headache, photophobia, nausea, and vomiting not relieved with zofran. Pt states that his headache began on Thursday, posterior radiating down back, 05/26 (7/10 with pain medication ), associated with neck pain, nausea, generalized weakness, and chills, causing him to lose sleep. He called out of work and made an appointment with his PCP who treated him with tamiflu and zofran even though flu was negative. #Viral meningitis vs Acute on chronic Lyme disease vs Mollerets - unknown cause - LP results as above show viral cause - full viral panel and encephalitis panel sent, rpr, vdrl, HIV, - awaiting HSV pcr - lyme panel sent, continue acyclovir - fungal culture sent - ID (Dr. Lagunas) recommending discontinuing ceftriaxone given Cx's negative X 48 hrs - neuro (Dr. Cobb) consulted thinking it could be mollerets given it is recurrent. Continue depakote 250 BID for total 4 days then switch to 500 BID. - seizure, fall precautions - neuro checks q2h - Tylenol 1000 IV q6H for pain, toradol prn no more than 30 mg/day and for no longer than 3 days. #Presyncope hx - pt on loop recorder - pt had no presyncopal event here - will continue to monitor Dispo: Med surg monitoring sufficient DVTR ppx:Lovenox 40 daily Visit type - Emergency Visit Emergency Visit: Yes ED Registration Date: 10/07/19 Care time: The patient presented to the Emergency Department on the above date and was hospitalized for further evaluation of their emergent condition. - New Patient This patient is new to me today: No - Critical Care Critical Care patient: No - Discharge Referral Referred to [facility] Med P.C.: No ATTENDING PHYSICIAN STATEMENT I saw and evaluated the patient. I reviewed the resident's note and discussed the case with the resident. I agree with the resident's findings and plan as documented. SUBJECTIVE: OBJECTIVE: ASSESSMENT AND PLAN:
[2019-10-10] MEDS ORDERED: PT OWN MED DRAWER 7, Y5N ONE (17:10)
--- NOTE | 2019-10-10 17:46 | PN ---
Teaching Attending Note Name of Resident: Gustavo Duran ATTENDING PHYSICIAN STATEMENT I saw and evaluated the patient. I reviewed the resident's note and discussed the case with the resident. I agree with the resident's findings and plan as documented. SUBJECTIVE: Patient has no complaints. OBJECTIVE: Vital Signs Period Temp Pulse Resp BP Sys/Major Pulse Ox Last 24 Hr 97.3 F-98.3 F 59-73 18-18 123-135/65-79 98-100 GENERAL: No distress HEART: S1S2, RRR LUNGS: Clear ABDOMEN: Soft, non-tender, non-distended, normal BS EXTREMITIES: No edema Laboratory Results - last 24 hr 10/07/19 10/07/19 10/10/19 09:31 17:25 05:45 WBC 5.3 RBC 4.35 Hgb 13.3 Hct 38.1 MCV 87.5 MCH 30.5 MCHC 34.8 RDW 13.1 Plt Count 216 MPV 8.5 Absolute Neuts (auto) 2.0 Neutrophils % 36.7 L D Lymphocytes % 42.0 H D Monocytes % 10.8 H Eosinophils % 9.5 H D Basophils % 1.0 D Nucleated RBC % 0 Sodium Potassium Chloride Carbon Dioxide Anion Gap BUN Creatinine Est GFR (CKD-EPI)AfAm Est GFR (CKD-EPI)NonAf Random Glucose Calcium Total Bilirubin AST ALT Alkaline Phosphatase Total Protein Albumin CSF VDRL Non reactive HSV I IgG Ab <0.91 HSV II Inhibition IgG >23.60 H 10/10/19 05:45 WBC RBC Hgb Hct MCV MCH MCHC RDW Plt Count MPV Absolute Neuts (auto) Neutrophils % Lymphocytes % Monocytes % Eosinophils % Basophils % Nucleated RBC % Sodium 139 Potassium 3.7 Chloride 106 Carbon Dioxide 27 Anion Gap 5 L BUN 9.4 Creatinine 0.9 Est GFR (CKD-EPI)AfAm 129.61 Est GFR (CKD-EPI)NonAf 111.83 Random Glucose 96 Calcium 9.0 Total Bilirubin 0.7 AST 13 L ALT 23 Alkaline Phosphatase 49 Total Protein 6.7 Albumin 3.4 CSF VDRL HSV I IgG Ab HSV II Inhibition IgG Current Medications Generic Name Dose Route Start Last Admin Trade Name Freq PRN Reason Stop Dose Admin Acetaminophen 650 mg 10/08/19 23:26 10/10/19 10:41 Tylenol - PO 650 mg Q6H PRN Administration Fever Or Pain Divalproex Sodium 250 mg 10/09/19 22:00 10/10/19 09:44 Depakote - PO 250 mg BID JULIA Administration Docusate Sodium 100 mg 10/09/19 16:45 10/10/19 09:44 Colace - PO 100 mg DAILY JULIA Administration Sodium Chloride 1,000 mls @ 100 mls/hr 10/07/19 16:50 10/10/19 17:12 Normal Saline - IV Not Given ASDIR JULIA Acyclovir 800 mg/ Dextrose 266 mls @ 266 mls/hr 10/07/19 22:00 10/10/19 17:13 IVPB 266 mls/hr Q8H-IV JULIA Administration ASSESSMENT AND PLAN: This is a 34 year old man with a history of viral meningitis, Lyme disease who presented to the ED with headache, photophobia, nausea, and vomiting. 1. 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 Migraine headaches with seizure disorder - Depakote started - Outpatient MRI of brain once loop recorder removed
[2019-10-10] MEDS ORDERED: ONDANSETRON *ODT* 4 MG TABLET SL ONE (20:19)
[2019-10-10] MEDS ORDERED: diphenhydrAMINE HCL 25 MG CAPSULE (FP) PO ONE (20:51)
[2019-10-11] MEDS ORDERED: PT OWN MED DRAWER 7, Y5N ONE ×3 (01:17→21:19)
[2019-10-11] MEDS: ACYCLOVIR INJECTION 800 MG in DEXTROSE 5%-WATER - 250 ML IVPB SCH ×3 (01:20→17:08)
[2019-10-11] MEDS: SODIUM CHLORIDE 1,000 ML IV SCH ×2 (01:23→17:07)
[2019-10-11] MEDS: DOCUSATE SODIUM 100 MG CAPSULE (FP) PO SCH (09:43)
[2019-10-11] MEDS: DIVALPROEX SODIUM 250 MG TABLET E.C. PO SCH ×2 (09:43→23:15)
[2019-10-11] MEDS: ACETAMINOPHEN 325 MG TABLET (FP) PO PRN ×3 (09:44→23:14)
--- NOTE | 2019-10-11 12:28 | PN ---
Teaching Attending Note Name of Resident: Gustavo Duran ATTENDING PHYSICIAN STATEMENT I saw and evaluated the patient. I reviewed the resident's note and discussed the case with the resident. I agree with the resident's findings and plan as documented. SUBJECTIVE: Feeling much better. No more neck stiffness/headache/photophobia. OBJECTIVE: Afebrile, Hemodynamically Stable. No photophobia/nuchal rigidity. Last Vital Signs Temp Pulse Resp BP Pulse Ox 98.5 F 62 20 116/72 98 10/11/19 10:00 10/11/19 10:00 10/11/19 10:00 10/11/19 10:00 10/11/19 09:00 HEENT: Atraumatic, Normocephalic. No pharyngeal erythema/exudate, no lymphadenopathy. No neck stiffness. HARSHIL. HEART: S1, S2, RRR LUNGS: Clear to auscultation ABDOMEN: Soft, non-tender, non-distended, normal BS EXTREMITIES: No edema, no calf tenderness. Laboratory Results - last 24 hr 10/07/19 10/07/19 10/07/19 09:31 14:16 17:25 CSF VDRL Non reactive Lyme Screen IgG & IgM Lyme IgM 23 kDa Band Lyme IgM 39 kDa Band Lyme IgM 41 kDa Band EBV DNA (PCR) Negative HSV I IgG Ab <0.91 HSV II Inhibition IgG >23.60 H 10/08/19 10/08/19 05:25 17:25 CSF VDRL Lyme Screen IgG & IgM <0.91 Lyme IgM 23 kDa Band No Result Required. Lyme IgM 39 kDa Band No Result Required. Lyme IgM 41 kDa Band No Result Required. EBV DNA (PCR) Negative HSV I IgG Ab HSV II Inhibition IgG Current Medications Generic Name Dose Route Start Last Admin Trade Name Freq PRN Reason Stop Dose Admin Acetaminophen 650 mg 10/08/19 23:26 10/11/19 09:44 Tylenol - PO 650 mg Q6H PRN Administration Fever Or Pain Divalproex Sodium 250 mg 10/09/19 22:00 10/11/19 09:43 Depakote - PO 250 mg BID JULIA Administration Docusate Sodium 100 mg 10/09/19 16:45 10/11/19 09:43 Colace - PO 100 mg DAILY JULIA Administration Sodium Chloride 1,000 mls @ 100 mls/hr 10/07/19 16:50 10/11/19 01:23 Normal Saline - IV 100 mls/hr ASDIR JULIA Administration Acyclovir 800 mg/ Dextrose 266 mls @ 266 mls/hr 10/07/19 22:00 10/11/19 10:57 IVPB 266 mls/hr Q8H-IV JULIA Administration ASSESSMENT AND PLAN: 34 year old male with history of treated Lyme disease, multiple syncopal (? seizure) episodes (implanted loop recorder in situ), Hx of viral meningitis, presented to the ED with headache, photophobia, nausea, and vomiting, found to have aseptic versus viral meningitis. 1. 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 Lyme serological titers negative, CSF pending. Currently afebrile, hemodynamically stable, with symptoms resolution. Continue Acyclovir pending ID re-evaluation. 2. Migraine headaches with seizure disorder - Depakote started by Neurology CT head - no acute findings. Outpatient MRI of brain once loop recorder removed Neuro follow up on discharge. 3. Syncopal, possible seizure episodes. Loop recorder in situ Cardio follow up on discharge. Neuro started Depakote - neuro to follow. DVT Px - SCDs.
--- NOTE | 2019-10-11 16:25 | DS ---
Physical Exam: SUBJECTIVE: Patient seen and examined OBJECTIVE: Vital Signs Period Temp Pulse Resp BP Sys/Major Pulse Ox Last 24 Hr 97.9 F-98.6 F 57-72 18-20 116-131/62-85 98-98 PHYSICAL EXAM GENERAL: The patient is awake, alert, and fully oriented, in no acute distress. HEAD: Normal with no signs of trauma. EYES: PERRL, extraocular movements intact, sclera anicteric, conjunctiva clear. ENT: Ears normal, nares patent, oropharynx clear without exudates, moist mucous membranes. NECK: Trachea midline, full range of motion, supple. LUNGS: Breath sounds equal, clear to auscultation bilaterally, no wheezes, no crackles, no accessory muscle use. HEART: Regular rate and rhythm, S1, S2 without murmur, rub or gallop. ABDOMEN: Soft, nontender, nondistended, normoactive bowel sounds, no guarding, no rebound, no hepatosplenomegaly, no masses. EXTREMITIES: 2+ pulses, warm, well-perfused, no edema. NEUROLOGICAL: Cranial nerves II through XII grossly intact. Normal speech, gait not observed. PSYCH: Normal mood, normal affect. SKIN: Warm, dry, normal turgor, no rashes or lesions noted. LABS Laboratory Results - last 24 hr 10/07/19 10/07/19 10/07/19 09:31 10:45 14:16 CSF VDRL Non reactive CSF Lyme IgG Ab 18 kDa Absent CSF Lyme IgG Ab 23 kDa Present H CSF Lyme IgG Ab 28 kDa Absent CSF Lyme IgG Ab 30 kDa Absent CSF Lyme IgG Ab 39 kDa Absent CSF Lyme IgG Ab 41 kDa Present H CSF Lyme IgG Ab 45 kDa Absent CSF Lyme IgG Ab 58 kDa Absent CSF Lyme IgG Ab 66 kDa Absent CSF Lyme IgG Ab 93 kDa Absent CSF Lyme IgM Ab 23 kDa Absent CSF Lyme IgM Ab 39 kDa Absent CSF Lyme IgM Ab 41 kDa Absent Lyme Screen IgG & IgM Lyme IgG Ab Interpret Negative Lyme IgM 23 kDa Band Lyme IgM 39 kDa Band Lyme IgM 41 kDa Band Lyme IgM Ab Index Negative EBV DNA (PCR) Negative HSV I DNA Quant (PCR) HSV II DNA Quant (PCR) 10/07/19 10/08/19 10/08/19 17:25 05:25 17:25 CSF VDRL CSF Lyme IgG Ab 18 kDa CSF Lyme IgG Ab 23 kDa CSF Lyme IgG Ab 28 kDa CSF Lyme IgG Ab 30 kDa CSF Lyme IgG Ab 39 kDa CSF Lyme IgG Ab 41 kDa CSF Lyme IgG Ab 45 kDa CSF Lyme IgG Ab 58 kDa CSF Lyme IgG Ab 66 kDa CSF Lyme IgG Ab 93 kDa CSF Lyme IgM Ab 23 kDa CSF Lyme IgM Ab 39 kDa CSF Lyme IgM Ab 41 kDa Lyme Screen IgG & IgM <0.91 Lyme IgG Ab Interpret Lyme IgM 23 kDa Band No Result Required. Lyme IgM 39 kDa Band No Result Required. Lyme IgM 41 kDa Band No Result Required. Lyme IgM Ab Index EBV DNA (PCR) Negative HSV I DNA Quant (PCR) Negative HSV II DNA Quant (PCR) Negative HOSPITAL COURSE: Date of Admission:10/07/19 This is a 34 yo M with a PMHx of viral meningitis 6 years ago, Lyme disease 8 years ago (did not complete doxy regimen), unexplained pre-syncope/syncope with loop recorder in place for past 1 years, admitted for viral meningitis. Pt underwent LP which showed a viral like picture. Empirically started on vanco, acycolvir, ceftriaxone initially. After CSF cultures came back negative, we continued azyclovir only. Pt was seen by neuro (Reza) who placed him on depakote 250 for 4 days and then 500 depakote to continue after with close followup. Furthermore, pt to continue acyclovir PO afterwards. #Viral meningitis vs Acute on chronic Lyme disease vs Mollerets - unknown cause - LP results as above show viral cause - full viral panel and encephalitis panel sent, rpr, vdrl, HIV, - awaiting HSV pcr - lyme panel sent, continue acyclovir - fungal culture sent - ID (Dr. Lagunas) recommending discontinuing ceftriaxone given Cx's negative X 48 hrs - neuro (Dr. Cobb) consulted thinking it could be mollerets given it is recurrent. Continue depakote 250 BID for total 4 days then switch to 500 BID. - seizure, fall precautions - neuro checks q2h - Tylenol 1000 IV q6H for pain, toradol prn no more than 30 mg/day and for no longer than 3 days. #Presyncope hx - pt on loop recorder - pt had no presyncopal event here - will continue to monitor Dispo: Med surg monitoring sufficient Date of Discharge: 10/11/19 Discharge Summary Problems reviewed: Yes Reason For Visit: VIRAL MENINGITIS Current Active Problems Viral meningitis (Acute) Condition: Good - Instructions Diet, Activity, Other Instructions: You were admitted for having severe headache and stiff neck (meningitis) due to the herpes virus. You were treated with IV medications to help treat this. You are no longer having headaches or stiff neck and you will continue the necessary treatment as shown below to help complete treatment course. Medications to continue after discharge: Acyclovir 400 mg twice a day by mouth Depakote ER 250 mg by mouth twice a day x 1 day then continue 500 mg by mouth twice a day until you follow up with neuro and they make there recommendations. You should follow up with your neurologist (Dr. Cobb) in 1 week after you leave here for your meningitis and depakote management. Furthermore, once the loop recorder is removed you should have a follow up MRI of your brain to assess the migraine cause. You should follow up with your infectious disease doctor (Dr. Lagunas) in 1 week after you leave here for management of your meningitis. You should follow up with your primary care doctor in 1 week for your overall health concerns. You should return to the ER if you have any acute worsening of your current symptoms or: chest pain, stiff neck, migraines, diffiuclty breating, weakness in your extremities, or painful rashes. Referrals: Dane Collins MD [Primary Care Provider] - Frankie Cobb MD [Staff Physician] - Shanda Lagunas MD [Staff Physician] - Disposition: HOME - Discharge Referral Referred to [facility] No ATTENDING PHYSICIAN STATEMENT I saw and evaluated the patient. I reviewed the resident's note and discussed the case with the resident. I agree with the resident's findings and plan as documented. SUBJECTIVE: OBJECTIVE: ASSESSMENT AND PLAN:
[2019-10-11] MEDS ORDERED: ACETAMINOPHEN/CAFFEINE/BUTALBITAL 1 TAB ONE (17:05)
--- NOTE | 2019-10-11 18:49 | PN ---
Physical Exam: SUBJECTIVE: Patient seen and examined. Pt developed pruritic erythematous rash of rt elbow last nite. improved w benadryl. Pt c/o minimal neck stiffness this AM. OBJECTIVE: Vital Signs Period Temp Pulse Resp BP Sys/Major Pulse Ox Last 24 Hr 97.9 F-98.6 F 62-72 20-20 116-126/62-85 98-98 GENERAL: The patient is awake, alert, and fully oriented, in no acute distress. minimal neck stiffness w head movement HEAD: Normal with no signs of trauma. LUNGS: Breath sounds equal, clear to auscultation bilaterally. HEART: Regular rate and rhythm, S1, S2 without murmur, rub or gallop. ABDOMEN: Soft, nontender, nondistended. EXTREMITIES: 2+ pulses, warm, well-perfused, no edema. Laboratory Results - last 24 hr 10/07/19 10/07/19 10/07/19 10:45 14:16 17:25 POC Glucometer CSF Lyme IgG Ab 18 kDa Absent CSF Lyme IgG Ab 23 kDa Present H CSF Lyme IgG Ab 28 kDa Absent CSF Lyme IgG Ab 30 kDa Absent CSF Lyme IgG Ab 39 kDa Absent CSF Lyme IgG Ab 41 kDa Present H CSF Lyme IgG Ab 45 kDa Absent CSF Lyme IgG Ab 58 kDa Absent CSF Lyme IgG Ab 66 kDa Absent CSF Lyme IgG Ab 93 kDa Absent CSF Lyme IgM Ab 23 kDa Absent CSF Lyme IgM Ab 39 kDa Absent CSF Lyme IgM Ab 41 kDa Absent Lyme Screen IgG & IgM Lyme IgG Ab Interpret Negative Lyme IgM 23 kDa Band Lyme IgM 39 kDa Band Lyme IgM 41 kDa Band Lyme IgM Ab Index Negative EBV DNA (PCR) Negative HSV I DNA Quant (PCR) Negative HSV II DNA Quant (PCR) Negative 10/08/19 10/08/19 10/11/19 05:25 17:25 16:43 POC Glucometer 91 CSF Lyme IgG Ab 18 kDa CSF Lyme IgG Ab 23 kDa CSF Lyme IgG Ab 28 kDa CSF Lyme IgG Ab 30 kDa CSF Lyme IgG Ab 39 kDa CSF Lyme IgG Ab 41 kDa CSF Lyme IgG Ab 45 kDa CSF Lyme IgG Ab 58 kDa CSF Lyme IgG Ab 66 kDa CSF Lyme IgG Ab 93 kDa CSF Lyme IgM Ab 23 kDa CSF Lyme IgM Ab 39 kDa CSF Lyme IgM Ab 41 kDa Lyme Screen IgG & IgM <0.91 Lyme IgG Ab Interpret Lyme IgM 23 kDa Band No Result Required. Lyme IgM 39 kDa Band No Result Required. Lyme IgM 41 kDa Band No Result Required. Lyme IgM Ab Index EBV DNA (PCR) Negative HSV I DNA Quant (PCR) HSV II DNA Quant (PCR) Active Medications Generic Name Dose Route Start Last Admin Trade Name Darrin PRN Reason Stop Dose Admin Acetaminophen 650 mg 10/08/19 23:26 10/11/19 17:12 Tylenol - PO 650 mg Q6H PRN Administration Fever Or Pain Divalproex Sodium 250 mg 10/09/19 22:00 10/11/19 09:43 Depakote - PO 250 mg BID JULIA Administration Docusate Sodium 100 mg 10/09/19 16:45 10/11/19 09:43 Colace - PO 100 mg DAILY JULIA Administration Sodium Chloride 1,000 mls @ 100 mls/hr 10/07/19 16:50 10/11/19 17:07 Normal Saline - IV 100 mls/hr ASDIR JULIA Administration Acyclovir 800 mg/ Dextrose 266 mls @ 266 mls/hr 10/07/19 22:00 10/11/19 17:08 IVPB 266 mls/hr Q8H-IV JULIA Administration ASSESSMENT/PLAN: This is a 34 yo M with a PMHx of viral meningitis 6 years ago, Lyme disease 8 years ago (did not complete doxy regimen), unexplained pre-syncope/syncope with loop recorder in place for past 1 years, presenting with headache, photophobia, nausea, and vomiting not relieved with zofran. Pt states that his headache began on Thursday, posterior radiating down back, 10/10 (7/10 with pain medication ), associated with neck pain, nausea, generalized weakness, and chills, causing him to lose sleep. He called out of work and made an appointment with his PCP who treated him with tamiflu and zofran even though flu was negative. #Aseptic viral meningitis vs Acute on chronic Lyme disease vs Mollerets - LP results as above show viral cause - full viral panel and encephalitis panel sent, rpr, vdrl, HIV, - awaiting HSV pcr csf. Spoke with Jose Alberto from [employer] in [place], [place] to add on CSF HSV 1,2 DNA PCR bc apparently serum was ordered not csf originally. Patient does not have to wait for result per neuro. Pt should be on acyclovir 400 mg for life. - continue acyclovir - fungal culture pending - ID (Dr. Lagunas) - neuro (Dr. Cobb) consulted thinking it could be mollerets given it is recurrent. Continue depakote 250 BID for one more day then switch to 500 BID. - seizure, fall precautions - neuro checks q2h - Tylenol 1000 IV q6H for pain, avoid opiates as pt should be improving pain. #Presyncope hx - pt on loop recorder - pt had no presyncopal event here - will continue to monitor Dispo: Med surg monitoring sufficient DVTR ppx:Lovenox 40 daily Visit type - Emergency Visit Emergency Visit: Yes ED Registration Date: 10/07/19 Care time: The patient presented to the Emergency Department on the above date and was hospitalized for further evaluation of their emergent condition. - New Patient This patient is new to me today: No - Critical Care Critical Care patient: No - Discharge Referral Referred to [facility] Med [facility].C[facility] No ATTENDING PHYSICIAN STATEMENT I saw and evaluated the patient. I reviewed the resident's note and discussed the case with the resident. I agree with the resident's findings and plan as documented. SUBJECTIVE: OBJECTIVE: ASSESSMENT AND PLAN:
[2019-10-11] MEDS ORDERED: ONDANSETRON 4 MG/2 ML VIAL IVPUSH PRN (22:26)
[2019-10-12] MEDS ORDERED: PT OWN MED DRAWER 7, Y5N ONE (00:33)
[2019-10-12] MEDS ORDERED: diphenhydrAMINE HCL 25 MG CAPSULE (FP) PO ONE (00:40)
[2019-10-12] MEDS: ACYCLOVIR INJECTION 800 MG in DEXTROSE 5%-WATER - 250 ML IVPB SCH ×3 (01:03→16:59)
[2019-10-12 08:13] LABS: BASO % 0.8 % (0-2.0); EOS % 6.9 % (0-4.5); HEMATOCRIT 36.6 % (35.4-49); HEMOGLOBIN 12.7 GM/dL (11.7-16.9); LYMPH % 29.3 % (8-40); MCH 30.1 pg (25.7-33.7); MCHC 34.6 g/dl (32.0-35.9); MEAN PLT VOLUME 7.9 fl (7.5-11.1); MONO % 9.2 % (3.8-10.2); NEUT % 53.8 % (42.8-82.8); PLATELET COUNT 235 K/MM3 (134-434); RBC 4.21 M/mm3 (4.00-5.60); RDW 12.9 % (11.9-15.9); WHITE BLOOD COUNT 6.6 K/mm3 (4.0-10.0)
[2019-10-12 08:56] LABS: ALBUMIN 3.4 g/dl (3.4-5.0); BILIRUBIN,TOTAL 0.9 mg/dL (0.2-1); BLOOD UREA NITROGEN 7.9 mg/dL (7-18); CALCIUM 9.1 mg/dL (8.5-10.1); POTASSIUM 3.8 mmol/L (3.5-5.1); TOT PROT 6.8 g/dl (6.4-8.2)
[2019-10-12] MEDS: DIVALPROEX SODIUM 250 MG TABLET E.C. PO SCH (09:35)
[2019-10-12] MEDS: DOCUSATE SODIUM 100 MG CAPSULE (FP) PO SCH (09:35)
--- NOTE | 2019-10-12 12:04 | PN ---
Physical Exam: SUBJECTIVE: Patient seen and examined. Still complaining of headache 4/10 in b/ l back of head, and nausea/GI symptoms but improving. He noted a rash on elbow again for second day which resolved w benadryl. OBJECTIVE: Vital Signs Period Temp Pulse Resp BP Sys/Major Pulse Ox Last 24 Hr 97.9 F-98.6 F 57-72 16-20 117-133/56-83 98-98 GENERAL: The patient is awake, alert, and fully oriented, in no acute distress. LUNGS: Breath sounds equal, clear to auscultation bilaterally, no wheezes, no crackles, no accessory muscle use. HEART: Regular rate and rhythm, S1, S2 without murmur, rub or gallop. ABDOMEN: Soft, nontender, nondistended. EXTREMITIES: 2+ pulses, warm, well-perfused, no edema. NEUROLOGICAL: Cranial nerves II through XII grossly intact. Normal speech, gait not observed. Brudzinski negative now, kernig negative. Laboratory Results - last 24 hr 10/07/19 10/07/19 10/11/19 10:45 17:25 16:43 WBC RBC Hgb Hct MCV MCH MCHC RDW Plt Count MPV Absolute Neuts (auto) Neutrophils % Lymphocytes % Monocytes % Eosinophils % Basophils % Nucleated RBC % Sodium Potassium Chloride Carbon Dioxide Anion Gap BUN Creatinine Est GFR (CKD-EPI)AfAm Est GFR (CKD-EPI)NonAf POC Glucometer 91 Random Glucose Calcium Total Bilirubin AST ALT Alkaline Phosphatase Total Protein Albumin CSF Lyme IgG Ab 18 kDa Absent CSF Lyme IgG Ab 23 kDa Present H CSF Lyme IgG Ab 28 kDa Absent CSF Lyme IgG Ab 30 kDa Absent CSF Lyme IgG Ab 39 kDa Absent CSF Lyme IgG Ab 41 kDa Present H CSF Lyme IgG Ab 45 kDa Absent CSF Lyme IgG Ab 58 kDa Absent CSF Lyme IgG Ab 66 kDa Absent CSF Lyme IgG Ab 93 kDa Absent CSF Lyme IgM Ab 23 kDa Absent CSF Lyme IgM Ab 39 kDa Absent CSF Lyme IgM Ab 41 kDa Absent Lyme IgG Ab Interpret Negative Lyme IgM Ab Index Negative HSV I DNA Quant (PCR) Negative HSV II DNA Quant (PCR) Negative 10/12/19 10/12/19 07:34 07:34 WBC 6.6 RBC 4.21 Hgb 12.7 Hct 36.6 MCV 87.0 MCH 30.1 MCHC 34.6 RDW 12.9 Plt Count 235 MPV 7.9 Absolute Neuts (auto) 3.6 Neutrophils % 53.8 D Lymphocytes % 29.3 D Monocytes % 9.2 Eosinophils % 6.9 H Basophils % 0.8 Nucleated RBC % 0 Sodium 140 Potassium 3.8 Chloride 106 Carbon Dioxide 25 Anion Gap 9 BUN 7.9 Creatinine 1.0 Est GFR (CKD-EPI)AfAm 114.11 Est GFR (CKD-EPI)NonAf 98.45 POC Glucometer Random Glucose 95 Calcium 9.1 Total Bilirubin 0.9 AST 14 L ALT 23 Alkaline Phosphatase 50 Total Protein 6.8 Albumin 3.4 CSF Lyme IgG Ab 18 kDa CSF Lyme IgG Ab 23 kDa CSF Lyme IgG Ab 28 kDa CSF Lyme IgG Ab 30 kDa CSF Lyme IgG Ab 39 kDa CSF Lyme IgG Ab 41 kDa CSF Lyme IgG Ab 45 kDa CSF Lyme IgG Ab 58 kDa CSF Lyme IgG Ab 66 kDa CSF Lyme IgG Ab 93 kDa CSF Lyme IgM Ab 23 kDa CSF Lyme IgM Ab 39 kDa CSF Lyme IgM Ab 41 kDa Lyme IgG Ab Interpret Lyme IgM Ab Index HSV I DNA Quant (PCR) HSV II DNA Quant (PCR) Active Medications Generic Name Dose Route Start Last Admin Trade Name Freq PRN Reason Stop Dose Admin Acetaminophen 650 mg 10/08/19 23:26 10/11/19 23:14 Tylenol - PO 650 mg Q6H PRN Administration Fever Or Pain Divalproex Sodium 250 mg 10/09/19 22:00 10/12/19 09:35 Depakote - PO 250 mg BID JULIA Administration Docusate Sodium 100 mg 10/09/19 16:45 10/12/19 09:35 Colace - PO 100 mg DAILY JULIA Administration Sodium Chloride 1,000 mls @ 100 mls/hr 10/07/19 16:50 10/11/19 17:07 Normal Saline - IV 100 mls/hr ASDIR JULIA Administration Acyclovir 800 mg/ Dextrose 266 mls @ 266 mls/hr 10/07/19 22:00 10/12/19 09:36 IVPB 266 mls/hr Q8H-IV JULIA Administration Ondansetron HCl 4 mg 10/11/19 22:26 10/11/19 22:37 Zofran Injection IVPUSH 4 mg Q4H PRN Administration NAUSEA AND/OR VOMITING ASSESSMENT/PLAN: This is a 34 yo M with a PMHx of viral meningitis 6 years ago, Lyme disease 8 years ago (did not complete doxy regimen), unexplained pre-syncope/syncope with loop recorder in place for past 1 years, presenting with headache, photophobia, nausea, and vomiting not relieved with zofran. Pt states that his headache began on Thursday, posterior radiating down back, 05/26 (7/10 with pain medication ), associated with neck pain, nausea, generalized weakness, and chills, causing him to lose sleep. He called out of work and made an appointment with his PCP who treated him with tamiflu and zofran even though flu was negative. #Aseptic viral meningitis vs Acute on chronic Lyme disease vs Mollerets - LP results as above show viral cause - full viral panel and encephalitis panel sent, rpr, vdrl, HIV, - continue acyclovir awaiting HSV pcr - lyme in csf is not c/w infection - fungal culture pending - ID (Dr. Lagunas) - neuro (Dr. Cobb) consulted thinking it could be mollerets given it is recurrent. - pt can start depakote 500 BID tm given note from neuro. - seizure, fall precautions - neuro checks q2h - Tylenol 1000 IV q6H for pain, avoid opiates as pt should be improving pain. #Presyncope hx - pt on loop recorder - pt had no presyncopal event here - will continue to monitor Dispo: Med surg monitoring sufficient DVTR ppx:Lovenox 40 daily Visit type - Emergency Visit Emergency Visit: Yes ED Registration Date: 10/07/19 Care time: The patient presented to the Emergency Department on the above date and was hospitalized for further evaluation of their emergent condition. - New Patient This patient is new to me today: No - Critical Care Critical Care patient: No - Discharge Referral Referred to [facility] Med [facility].C[facility] No ATTENDING PHYSICIAN STATEMENT I saw and evaluated the patient. I reviewed the resident's note and discussed the case with the resident. I agree with the resident's findings and plan as documented. SUBJECTIVE: OBJECTIVE: ASSESSMENT AND PLAN:
--- NOTE | 2019-10-12 16:11 | PN ---
Teaching Attending Note Name of Resident: Gustavo Duran ATTENDING PHYSICIAN STATEMENT I saw and evaluated the patient. I reviewed the resident's note and discussed the case with the resident. I agree with the resident's findings and plan as documented. SUBJECTIVE: Feeling much better. No more neck stiffness/photophobia. Mild headache. Vomited x 1 last night, no nausea today. No fever/chills. OBJECTIVE: Afebrile, Hemodynamically Stable. No photophobia/nuchal rigidity. Last Vital Signs Temp Pulse Resp BP Pulse Ox 98.4 F 60 18 131/80 98 10/12/19 14:47 10/12/19 14:47 10/12/19 14:47 10/12/19 14:47 10/12/19 09:00 HEENT: Atraumatic, Normocephalic. No pharyngeal erythema/exudate, no lymphadenopathy. No neck stiffness. HARSHIL. HEART: S1, S2, RRR LUNGS: Clear to auscultation ABDOMEN: Soft, non-tender, non-distended, normal BS EXTREMITIES: No edema, no calf tenderness. Laboratory Results - last 24 hr 10/07/19 10/11/19 10/12/19 17:25 16:43 07:34 WBC 6.6 RBC 4.21 Hgb 12.7 Hct 36.6 MCV 87.0 MCH 30.1 MCHC 34.6 RDW 12.9 Plt Count 235 MPV 7.9 Absolute Neuts (auto) 3.6 Neutrophils % 53.8 D Lymphocytes % 29.3 D Monocytes % 9.2 Eosinophils % 6.9 H Basophils % 0.8 Nucleated RBC % 0 Sodium Potassium Chloride Carbon Dioxide Anion Gap BUN Creatinine Est GFR (CKD-EPI)AfAm Est GFR (CKD-EPI)NonAf POC Glucometer 91 Random Glucose Calcium Total Bilirubin AST ALT Alkaline Phosphatase Total Protein Albumin HIV-1 RNA (PCR) <20 HIV-1 RNA (PCR) log10 TNP 10/12/19 07:34 WBC RBC Hgb Hct MCV MCH MCHC RDW Plt Count MPV Absolute Neuts (auto) Neutrophils % Lymphocytes % Monocytes % Eosinophils % Basophils % Nucleated RBC % Sodium 140 Potassium 3.8 Chloride 106 Carbon Dioxide 25 Anion Gap 9 BUN 7.9 Creatinine 1.0 Est GFR (CKD-EPI)AfAm 114.11 Est GFR (CKD-EPI)NonAf 98.45 POC Glucometer Random Glucose 95 Calcium 9.1 Total Bilirubin 0.9 AST 14 L ALT 23 Alkaline Phosphatase 50 Total Protein 6.8 Albumin 3.4 HIV-1 RNA (PCR) HIV-1 RNA (PCR) log10 Current Medications Generic Name Dose Route Start Last Admin Trade Name Freq PRN Reason Stop Dose Admin Acetaminophen 650 mg 10/08/19 23:26 10/11/19 23:14 Tylenol - PO 650 mg Q6H PRN Administration Fever Or Pain Divalproex Sodium 250 mg 10/09/19 22:00 10/12/19 09:35 Depakote - PO 250 mg BID JULIA Administration Divalproex Sodium 500 mg 10/13/19 10:00 Depakote *Er* - PO BID JULIA Docusate Sodium 100 mg 10/09/19 16:45 10/12/19 09:35 Colace - PO 100 mg DAILY JULIA Administration Sodium Chloride 1,000 mls @ 100 mls/hr 10/07/19 16:50 10/11/19 17:07 Normal Saline - IV 100 mls/hr ASDIR JULIA Administration Acyclovir 800 mg/ Dextrose 266 mls @ 266 mls/hr 10/07/19 22:00 10/12/19 09:36 IVPB 266 mls/hr Q8H-IV JULIA Administration Ondansetron HCl 4 mg 10/11/19 22:26 10/11/19 22:37 Zofran Injection IVPUSH 4 mg Q4H PRN Administration NAUSEA AND/OR VOMITING ASSESSMENT AND PLAN: 34 year old male with history of treated Lyme disease, multiple syncopal (? seizure) episodes (implanted loop recorder in situ), Hx of viral meningitis, presented to the ED with headache, photophobia, nausea, and vomiting, found to have aseptic versus viral meningitis. 1. 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 Lyme serological titers negative, CSF pos for IgG Currently afebrile, hemodynamically stable, with symptoms resolution. Continue IV Acyclovir for 7 days as per ID with transition to oral anti-viral after. 2. Migraine headaches with seizure disorder - Depakote started by Neurology - for discharge on 500mg BID CT head - no acute findings. Outpatient MRI of brain once loop recorder removed Neuro follow up on discharge. 3. Syncopal, possible seizure episodes. Loop recorder in situ Cardio follow up on discharge. Neuro started Depakote - Neuro to follow. DVT Px - SCDs.
[2019-10-12] MEDS: SODIUM CHLORIDE 1,000 ML IV SCH (17:00)
[2019-10-12 17:06] LABS: TOXOPLASMA IGG,CSF < 3.0 IU/mL (.)
--- NOTE | 2019-10-12 17:29 | PN ---
Progress Note (short form) - Note Progress Note: looks well able to eat headaches improved Vital Signs Period Temp Pulse Resp BP Sys/Major Pulse Ox Last 24 Hr 97.9 F-98.6 F 57-72 16-18 117-133/56-83 98-98 cor-rrr llungs clear abd soft,nt ext no edema awaiting hsv pcr CBC, BMP 10/12/19 07:34 10/12/19 07:34 Microbiology 10/07/19 10:45 Cerebral Spinal Fluid - Lumbar Puncture Cryptococcal Antigen - Final 10/07/19 08:30 Blood - Peripheral Venous Blood Culture - Final NO GROWTH AFTER 5 DAYS INCUBATION 10/07/19 08:30 Blood - Peripheral Venous Blood Culture - Final NO GROWTH AFTER 5 DAYS INCUBATION 10/07/19 10:45 Cerebral Spinal Fluid - Lumbar Puncture Gram Stain - Final 10/07/19 10:45 Cerebral Spinal Fluid - Lumbar Puncture CSF Culture - Final NO GROWTH AFTER 48 HOURS INCUBATION 10/07/19 10:45 Cerebral Spinal Fluid - Lumbar Puncture DAVID Preparation - Preliminary 10/07/19 10:45 Cerebral Spinal Fluid - Lumbar Puncture Fungal Culture - Preliminary 10/07/19 10:45 Cerebral Spinal Fluid - Lumbar Puncture Viral Culture - Preliminary 10/07/19 10:45 Cerebral Spinal Fluid - Lumbar Puncture AFB Smear Concentration - Preliminary 10/07/19 10:45 Cerebral Spinal Fluid - Lumbar Puncture Mycobacterial Culture - Preliminary 10/07/19 10:45 Cerebral Spinal Fluid - Lumbar Puncture Streptococcus pneumoniae Antigen (M - Final hiv negative a/p meningitis suspect viral/aseptic ?molleret's awaiting HSV pcr continue acyclovir and ivf lyme in csf is not c/w infection Problem List - Problems (1) Meningitis Code(s): G03.9 - MENINGITIS, UNSPECIFIED
[2019-10-12] MEDS ORDERED: DIVALPROEX NA *ER* EXTEND REL 500 MG TABLET.SA (FP) PO SCH (22:00)
[2019-10-13] MEDS: SODIUM CHLORIDE 1,000 ML IV SCH
[2019-10-13] MEDS: ACYCLOVIR INJECTION 800 MG in DEXTROSE 5%-WATER - 250 ML IVPB SCH ×2 (02:08→10:52)
[2019-10-13 08:08] LABS: BASO % 0.9 % (0-2.0); EOS % 7.1 % (0-4.5); HEMATOCRIT 36.8 % (35.4-49); HEMOGLOBIN 12.8 GM/dL (11.7-16.9); LYMPH % 38.2 % (8-40); MCH 30.4 pg (25.7-33.7); MCHC 34.8 g/dl (32.0-35.9); MEAN CELL VOLUME 87.5 fl (80-96); MEAN PLT VOLUME 8.1 fl (7.5-11.1); MONO % 9.6 % (3.8-10.2); NEUT % 44.2 % (42.8-82.8); PLATELET COUNT 245 K/MM3 (134-434); RDW 12.7 % (11.9-15.9); WHITE BLOOD COUNT 5.4 K/mm3 (4.0-10.0)
[2019-10-13 08:43] LABS: ALBUMIN 3.5 g/dl (3.4-5.0); BILIRUBIN,TOTAL 1.1 mg/dL (0.2-1); BLOOD UREA NITROGEN 10.8 mg/dL (7-18); CALCIUM 9.5 mg/dL (8.5-10.1); CREATININE 1.1 mg/dL (0.55-1.3); POTASSIUM 3.8 mmol/L (3.5-5.1); TOT PROT 6.9 g/dl (6.4-8.2)
[2019-10-13] MEDS ORDERED: DIVALPROEX NA *ER* EXTEND REL 500 MG TABLET.SA (FP) PO SCH (10:00)
[2019-10-13] MEDS: DOCUSATE SODIUM 100 MG CAPSULE (FP) PO SCH (10:53)
--- NOTE | 2019-10-13 11:43 | PN ---
Teaching Attending Note Name of Resident: Maranda Mejía ATTENDING PHYSICIAN STATEMENT I saw and evaluated the patient. I reviewed the resident's note and discussed the case with the resident. I agree with the resident's findings and plan as documented. SUBJECTIVE: Feeling much better. No more headache/neck stiffness/photophobia. No further nausea/vomiting. No fever/chills. OBJECTIVE: Afebrile, Hemodynamically Stable. No photophobia/nuchal rigidity. Last Vital Signs Temp Pulse Resp BP Pulse Ox 98.0 F 57 L 20 127/83 98 10/13/19 05:45 10/13/19 05:45 10/13/19 05:45 10/13/19 05:46 10/12/19 20:36 HEENT: Atraumatic, Normocephalic. No pharyngeal erythema/exudate, no lymphadenopathy. No neck stiffness. HARSHIL. HEART: S1, S2, RRR LUNGS: Clear to auscultation ABDOMEN: Soft, non-tender, non-distended, normal BS EXTREMITIES: No edema, no calf tenderness. Laboratory Results - last 24 hr 10/07/19 10/07/19 10/13/19 10:45 17:25 07:13 WBC 5.4 RBC 4.20 Hgb 12.8 Hct 36.8 MCV 87.5 MCH 30.4 MCHC 34.8 RDW 12.7 Plt Count 245 MPV 8.1 Absolute Neuts (auto) 2.4 Neutrophils % 44.2 Lymphocytes % 38.2 D Monocytes % 9.6 Eosinophils % 7.1 H Basophils % 0.9 Nucleated RBC % 0 Sodium Potassium Chloride Carbon Dioxide Anion Gap BUN Creatinine Est GFR (CKD-EPI)AfAm Est GFR (CKD-EPI)NonAf Random Glucose Calcium Total Bilirubin AST ALT Alkaline Phosphatase Total Protein Albumin CSF Toxoplasma IgG Ab < 3.0 HIV-1 RNA (PCR) <20 HIV-1 RNA (PCR) log10 TNP 10/13/19 07:13 WBC RBC Hgb Hct MCV MCH MCHC RDW Plt Count MPV Absolute Neuts (auto) Neutrophils % Lymphocytes % Monocytes % Eosinophils % Basophils % Nucleated RBC % Sodium 139 Potassium 3.8 Chloride 105 Carbon Dioxide 27 Anion Gap 7 L BUN 10.8 Creatinine 1.1 Est GFR (CKD-EPI)AfAm 101.69 Est GFR (CKD-EPI)NonAf 87.74 Random Glucose 92 Calcium 9.5 Total Bilirubin 1.1 H AST 12 L ALT 23 Alkaline Phosphatase 50 Total Protein 6.9 Albumin 3.5 CSF Toxoplasma IgG Ab HIV-1 RNA (PCR) HIV-1 RNA (PCR) log10 Current Medications Generic Name Dose Route Start Last Admin Trade Name Freq PRN Reason Stop Dose Admin Acetaminophen 650 mg 10/08/19 23:26 10/11/19 23:14 Tylenol - PO 650 mg Q6H PRN Administration Fever Or Pain Divalproex Sodium 500 mg 10/12/19 22:00 Depakote *Er* - PO BID JULIA Docusate Sodium 100 mg 10/09/19 16:45 10/13/19 10:53 Colace - PO Not Given DAILY JULIA Sodium Chloride 1,000 mls @ 100 mls/hr 10/07/19 16:50 10/13/19 00:00 Normal Saline - IV 100 mls/hr ASDIR JULIA Administration Acyclovir 800 mg/ Dextrose 266 mls @ 266 mls/hr 10/07/19 22:00 10/13/19 10:52 IVPB 266 mls/hr Q8H-IV JULIA Administration Ondansetron HCl 4 mg 10/11/19 22:26 10/11/19 22:37 Zofran Injection IVPUSH 4 mg Q4H PRN Administration NAUSEA AND/OR VOMITING ASSESSMENT AND PLAN: 34 year old male with history of treated Lyme disease, multiple syncopal (? seizure) episodes (implanted loop recorder in situ), Hx of viral meningitis, presented to the ED with headache, photophobia, nausea, and vomiting, found to have aseptic versus viral meningitis. 1. 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 HSV 2 Ig G positive Viral CSF including HSV PCR work-up pending. Lyme serological titers negative, CSF pos for IgG Currently afebrile, hemodynamically stable, with symptoms resolution. Completed IV Acyclovir for 7 days - for transition to oral anti-viral for maintenance/suppressive therapy on discharge. Neurologicaly and medically stable for discharge with ID and Neurology follow up. 2. Migraine headaches with seizure disorder - Depakote started by Neurology - for discharge on 500mg BID CT head - no acute findings. Outpatient MRI of brain once loop recorder removed Neuro follow up on discharge. 3. Syncopal, possible seizure episodes. Loop recorder in situ Cardio follow up on discharge. Neuro started Depakote - Neuro to follow. Stable for discharge with Neuro and ID follow up. Depakote and anti-viral suppressive therapy on discharge.
--- NOTE | 2019-10-13 13:47 | PN ---
Progress Note (short form) - Note Progress Note: looks well able to eat headaches improved Vital Signs Period Temp Pulse Resp BP Sys/Major Pulse Ox Last 24 Hr 98.0 F-98.5 F 57-73 18-20 127-139/80-90 98 cor-rrr lungs clear abd soft,nt ext no edema CBC, BMP 10/13/19 07:13 10/13/19 07:13 Microbiology 10/07/19 10:45 Cerebral Spinal Fluid - Lumbar Puncture Cryptococcal Antigen - Final 10/07/19 08:30 Blood - Peripheral Venous Blood Culture - Final NO GROWTH AFTER 5 DAYS INCUBATION 10/07/19 08:30 Blood - Peripheral Venous Blood Culture - Final NO GROWTH AFTER 5 DAYS INCUBATION 10/07/19 10:45 Cerebral Spinal Fluid - Lumbar Puncture Gram Stain - Final 10/07/19 10:45 Cerebral Spinal Fluid - Lumbar Puncture CSF Culture - Final NO GROWTH AFTER 48 HOURS INCUBATION 10/07/19 10:45 Cerebral Spinal Fluid - Lumbar Puncture DAVID Preparation - Preliminary 10/07/19 10:45 Cerebral Spinal Fluid - Lumbar Puncture Fungal Culture - Preliminary 10/07/19 10:45 Cerebral Spinal Fluid - Lumbar Puncture Viral Culture - Preliminary 10/07/19 10:45 Cerebral Spinal Fluid - Lumbar Puncture AFB Smear Concentration - Preliminary 10/07/19 10:45 Cerebral Spinal Fluid - Lumbar Puncture Mycobacterial Culture - Preliminary 10/07/19 10:45 Cerebral Spinal Fluid - Lumbar Puncture Streptococcus pneumoniae Antigen (M - Final hiv negative a/p meningitis suspect viral/aseptic ?molleret's awaiting HSV pcr can d/c iv acyclovir switch to po valtrex 500 bid f/u with us in the office for further lab results (he has our card) f/u with neurology lyme in csf is not c/w infection d/w resident Problem List - Problems (1) Meningitis Code(s): G03.9 - MENINGITIS, UNSPECIFIED
[2019-10-13 14:11] VITALS: BP 121/71; PULSE 60; TEMP 98.1
--- NOTE | 2019-10-13 14:28 | DS ---
Physical Exam: SUBJECTIVE: Patient seen and examined. No acute events overnight. Patient denies having a headache or other concerns. OBJECTIVE: Vital Signs Period Temp Pulse Resp BP Sys/Major Pulse Ox Last 24 Hr 98.0 F-98.5 F 57-73 18-20 121-139/71-90 98 PHYSICAL EXAM GENERAL: The patient is awake, alert, and fully oriented, in no acute distress. HEAD: Normal with no signs of trauma. EYES: EOMI, no ptosis ENT: MMM NECK: Trachea midline, full range of motion, supple. LUNGS: Breath sounds equal, clear to auscultation bilaterally, no wheezes, no crackles, no accessory muscle use. HEART: Regular rate and rhythm, S1, S2 without murmur, rub or gallop. ABDOMEN: Soft, nontender, nondistended, normoactive bowel sounds, no guarding EXTREMITIES: 2+ pulses, warm, well-perfused, no edema. NEUROLOGICAL: Normal speech, gait not observed. Sensation grossly intact. PSYCH: Normal mood, normal affect. SKIN: Warm, dry, normal turgor, no rashes or lesions noted LABS Laboratory Results - last 24 hr 10/07/19 10/07/19 10/13/19 10:45 17:25 07:13 WBC RBC Hgb Hct MCV MCH MCHC RDW Plt Count MPV Absolute Neuts (auto) Neutrophils % Lymphocytes % Monocytes % Eosinophils % Basophils % Nucleated RBC % Sodium Potassium Chloride Carbon Dioxide Anion Gap BUN Creatinine Est GFR (CKD-EPI)AfAm Est GFR (CKD-EPI)NonAf Random Glucose Calcium Total Bilirubin AST ALT Alkaline Phosphatase Total Protein Albumin CSF Toxoplasma IgG Ab < 3.0 RPR Titer Nonreactive HIV-1 RNA (PCR) <20 HIV-1 RNA (PCR) log10 TNP 10/13/19 10/13/19 07:13 07:13 WBC 5.4 RBC 4.20 Hgb 12.8 Hct 36.8 MCV 87.5 MCH 30.4 MCHC 34.8 RDW 12.7 Plt Count 245 MPV 8.1 Absolute Neuts (auto) 2.4 Neutrophils % 44.2 Lymphocytes % 38.2 D Monocytes % 9.6 Eosinophils % 7.1 H Basophils % 0.9 Nucleated RBC % 0 Sodium 139 Potassium 3.8 Chloride 105 Carbon Dioxide 27 Anion Gap 7 L BUN 10.8 Creatinine 1.1 Est GFR (CKD-EPI)AfAm 101.69 Est GFR (CKD-EPI)NonAf 87.74 Random Glucose 92 Calcium 9.5 Total Bilirubin 1.1 H AST 12 L ALT 23 Alkaline Phosphatase 50 Total Protein 6.9 Albumin 3.5 CSF Toxoplasma IgG Ab RPR Titer HIV-1 RNA (PCR) HIV-1 RNA (PCR) log10 HOSPITAL COURSE: Date of Admission:10/07/19 Date of Discharge: 10/13/19 34 year old male with history of treated Lyme disease, multiple syncopal (? seizure) episodes (implanted loop recorder in situ), Hx of viral meningitis, presented to the ED with headache, photophobia, nausea, and vomiting, found to have aseptic versus viral meningitis. Patient was found to be HSV 2 IgG positive , CSF HSV PCR is still pending. Patient completed a 7 day course of Acycolovir for 7 days and is being discharged on Valtrex 500mg BID. Patient was seen by Neurology and was started on Depakote 500mg BID for migraine headaches with seizure disorder. CT head was performed and no acute pathology was found. Neurology recommended brain MRI once the patient's loop recorder is removed. Patient to follow up with Neuro and ID after discharge. Patient will follow up with Cardio after discharge. Patient stable for discharge home with appropriate follow up. Minutes to complete discharge: 36 Discharge Summary Problems reviewed: Yes Reason For Visit: VIRAL MENINGITIS Current Active Problems Viral meningitis (Acute) Condition: Good - Instructions Diet, Activity, Other Instructions: You were admitted for having severe headache and stiff neck (meningitis) due to the herpes virus. You were treated with IV medications to help treat this. You are no longer having headaches or stiff neck and you will continue the necessary treatment as shown below to help complete treatment course. Medications to continue after discharge: 1) Acyclovir 400 mg twice a day by mouth 2) Depakote ER 500 mg by mouth twice a day until you follow up with neuro and they make their recommendations. You should follow up with your neurologist (Dr. Cobb) in 1 week after you leave here for your meningitis and depakote management. Furthermore, once the loop recorder is removed you should have a follow up MRI of your brain to assess the migraine cause. You should follow up with your infectious disease doctor (Dr. Lagunas) in 1 week after you leave here for management of your meningitis. You should follow up with your primary care doctor in 1 week for your overall health concerns. You should follow up with your word processor operator to have your loop recorder checked within 1-2 weeks of discharge. You should return to the ER if you have any acute worsening of your current symptoms or: chest pain, stiff neck, migraines, difficulty breathing, weakness in your extremities, or painful rashes. Referrals: Dane Collins MD [Primary Care Provider] - 1 Week Frankie Cobb MD [Staff Physician] - 1 Week Shanda Lagunas MD [Staff Physician] - 1 Week Disposition: HOME - Home Medications Comprehensive Discharge Medication List: Ambulatory Orders Divalproex *ER* [Depakote *ER* -] 500 mg PO BID 30 Days #60 tablet.sa 10/13/19 Valacyclovir HCl [Valtrex] 500 mg PO BID 30 Days #60 tablet 10/13/19 This patient is new to me today: Yes Date on this admission: 10/13/19 Emergency Visit: Yes ED Registration Date: 10/07/19 Care time: The patient presented to the Emergency Department on the above date and was hospitalized for further evaluation of their emergent condition. Critical Care patient: No - Discharge Referral Referred to [facility] Med [facility] No ATTENDING PHYSICIAN STATEMENT I saw and evaluated the patient. I reviewed the resident's note and discussed the case with the resident. I agree with the resident's findings and plan as documented. SUBJECTIVE: OBJECTIVE: ASSESSMENT AND PLAN:
[2019-10-18 06:05] LABS: HERPES SIMPLEX TYPE 1 IGM 0.07 IV (<=0.89)
[2019-10-21 01:09] LABS: MUMPS AB IGG CSF < 5.0 AU/mL (<=10.9)
== END 2019-10-13 14:59 | disposition home or self-care (01) | DRG 76 ==
LOC: JER 07:16 → JERBED 12:33 → J4S 23:39 → J6S 10-11 12:30
PROVIDERS: ADMIT Internal Medicine
DX: A87.8 Other viral meningitis (principal); E03.9 Hypothyroidism, unspecified; G43.909 Migraine, unspecified, not intractable, without status migrainosus; G40.909 Epilepsy, unspecified, not intractable, without status epilepticus; H53.149 Visual discomfort, unspecified; M43.6 Torticollis; R11.2 Nausea with vomiting, unspecified; R42 Dizziness and giddiness; Z87.891 Personal history of nicotine dependence
CPT/HCPCS: 36415; 70450-TC; 80053; 82945; 82962; 83735; 84100; 84157; 84443; 85025; 85610; 85730; 86592; 86593; 86617; 86618; 86694; 86695; 86696; 86735; 86765; 86777; 86787; 86788; 86789; 87040; 87070; 87102; 87116; 87205; 87206; 87210; 87252; 87389; 87529; 87536; 87799; 87804; 87899; 93005; 93010; 99285-25; J0131; J7030; Q0162

== ENCOUNTER 2022-02-10 23:16 | Emergency (ER) | payer BC ==
[2022-02-10 23:22] VITALS: BP 126/89; PULSE 81; TEMP 98; BMI 22.3
[2022-02-11 02:03] LABS: BASO % 0.9 % (0-2.0); EOS % 4.5 % (0-4.5); HEMATOCRIT 43.3 % (35.4-49); HEMOGLOBIN 14.8 GM/dL (11.7-16.9); LYMPH % 42.2 % (8-40); MCH 29.5 pg (25.7-33.7); MCHC 34.1 g/dl (32.0-35.9); MEAN CELL VOLUME 86.6 fl (80-96); MEAN PLT VOLUME 8.2 fl (7.5-11.1); MONO % 10.5 % (3.8-10.2); NEUT % 41.9 % (42.8-82.8); PLATELET COUNT 237 10^3/uL (134-434); RBC 4.99 M/mm3 (4.00-5.60); RDW 13.1 % (11.9-15.9)
[2022-02-11 02:26] LABS: ALBUMIN 4.2 g/dl (3.4-5.0); CALCIUM 9.9 mg/dL (8.5-10.1)
[2022-02-11 02:29] LABS: CREATININE 0.9 mg/dL (0.55-1.3)
[2022-02-11 02:31] LABS: BILIRUBIN,TOTAL 0.4 mg/dL (0.2-1); TOT PROT 7.8 g/dl (6.4-8.2)
== END 2022-02-11 05:43 | disposition home or self-care (01) ==
LOC: JER 23:16
DX: R07.9 Chest pain, unspecified (principal)
CPT/HCPCS: 36415; 71046-TC-FY; 80053; 84484; 85025; 93005; 93010; 99284-25